=== PATIENT | female | born 1965 | race Caucasian/White ===

== ENCOUNTER → 2020-03-02 07:45 | Outpatient (CLI) | payer BC, SELFPAY ==
--- NOTE | ~2020-03-02 | US_ITS ---
US abdomen complete EXAMINATION: US Abdomen Complete INDICATION: Thrombocytopenia. Low platelets. PROCEDURE: Realtime High Resolution abdomen ultrasound. COMPARISON: Ultrasound dated 09/04/2018 FINDINGS: Gallbladder within normal limits. No gallstones, pericholecystic fluid, gallbladder wall t hickening or biliary dilatation. Common bile duct measures 3 mm. Liver echotexture is increased, consistent with fatty infiltration.. Pancreas within normal limits. Pancreatic tail is obscured by bowel gas. Spleen is unremarkeable. Renal echotexture is within norm al limits bilaterally without hydronephrosis, contour deforming mass or renal stone. Right kidney jane sures 10.7 cm. Left kidney measures 12 cm. Visualized aspects of the aorta and IVC are within normal limits. Portal vein is patent. No sonograph ic Johnson's sign indicated by the technologist. IMPRESSION: 1: Fatty infiltration of the liver. Reviewed, dictated and finalized at location A. INSPECTOR
== END ==
DX: D69.6 Thrombocytopenia, unspecified (principal); K76.0 Fatty (change of) liver, not elsewhere classified
CPT/HCPCS: 76700

== ENCOUNTER → 2021-11-21 14:18 | Outpatient (CLI) | payer BC, SELFPAY ==
--- NOTE | ~2021-11-21 | MMUS_ITS ---
EXAMINATION: MM diagnostic nay BI w sonia, US breast RT limited HISTORY: Patient complains of right breast lump, swelling of right breast TECHNIQUE: ML, MLO and CC 3-D tomosynthesis images of both breasts were performed and synthetic 2-D i mages were generated. CAD analysis was submitted and interpreted. High resolution targeted right [address] st ultrasound was performed. COMPARISON: 03/04/2019, 03/04/2018 bilateral screening mammogram examinations BREAST PARENCHYMAL COMPOSITION: The breasts are almost entirely fatty. FINDINGS: MAMMOGRAPHIC FINDINGS: No suspicious mass or architectural distortion, malignant calcification, skin thickening or retractio n or significant new or developing density is detected. ULTRASOUND: No suspicious mass or shadowing is detected at the area of clinical complaint, scanning at 5:00 12 cm from nipple and 7:00. IMPRESSION: 1. No mammographic evidence of malignancy 2. Routine mammographic screening is recommended BI-RADS Category 1: Negative Reviewed, dictated and finalized at location A. IMPRESSION: 1. No mammographic evidence of malignancy 2. Routine mammographic screening is recommended BI-RADS Category 1: Negative
== END ==
PROVIDERS: PCP Nurse Practitioner; Visit Provider Nurse Practitioner
DX: N63.13 Unspecified lump in the right breast, lower outer quadrant (principal)
CPT/HCPCS: 76642; 77062; 77066; G0279

== ENCOUNTER 2022-09-27 10:05 | Emergency (ER) | payer BC, SELFPAY ==
[2022-09-27 10:26] VITALS: BP 153/89; PULSE 109; RESP 18; TEMP 37; O2SAT 98
[2022-09-27] MEDS: TETANUS,DIPHTHERIA,AC PERTUSSIS ADULT (0.5 ML) BOOSTRIX IM (11:43)
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
== END 2022-09-27 13:21 | disposition home or self-care (01) ==
PROVIDERS: Emergency Provider Physician Assistant; PCP Nurse Practitioner
DX: S81.851A Open bite, right lower leg, initial encounter (principal); Z23 Encounter for immunization; W50.3XXA Accidental bite by another person, initial encounter
CPT/HCPCS: 90471; 90715; 99283

== ENCOUNTER 2024-06-24 13:43 | Outpatient (CLI) | payer BC, SELFPAY ==
--- NOTE | ~2024-06-24 | MM_ITS ---
EXAMINATION: MM screening [facility] BI w sonia HISTORY: Screening TECHNIQUE: Craniocaudal and mediolateral oblique 3-D tomosynthesis images were obtained and synthetic 2-D images were generated. CAD analysis was submitted and interpreted. COMPARISON: Comparison to multiple prior studies sequentially, with oldest reviewed study dated 09/06. BREAST PARENCHYMAL COMPOSITION: Not dense: There are scattered areas of fibroglandular density. FINDINGS: There is no evidence of suspicious mass, calcification, or architectural distortion to sugg est malignancy in either breast. There has been no suspicious interval change. IMPRESSION: 1. No mammographic evidence of malignancy. 2. Recommend routine screening mammography in one year. BI-RADS Category 1: Negative Reviewed, dictated and finalized at location A.
== END 2024-06-24 13:44 | disposition home or self-care (01) ==
LOC: MICIMG 13:44
PROVIDERS: PCP Nurse Practitioner; Visit Provider Nurse Practitioner
DX: Z12.31 Encounter for screening mammogram for malignant neoplasm of breast (principal)
CPT/HCPCS: 77063; 77067

== ENCOUNTER 2025-03-07 09:22 | Inpatient (IN) | payer BC, SELFPAY ==
[2025-03-07] VITALS (38 sets, daily range): BP systolic 74–164; BP diastolic 36–84; PULSE 86–166; RESP 14–27; TEMP 36.6–39.4; O2SAT 92–100; BMI 23.1
--- NOTE | ~2025-03-07 | CT_ITS ---
CT abdomen pelvis w con Clinical History: ruq pain . Comparison: None Technique: Axial images lung bases to symphysis pubis IV contrast information not listed in PACS Coronal, sagittal reformats CT images acquired with automatic exposure control for dose reduction DLP: 439 mGy-cm Findings: Lung bases: Clear. Visualized heart and pericardium: Unremarkable. Liver: Unremarkable. Gallbladder: Unremarkable. Spleen: Unremarkable. Pancreas: Unremarkable. Adrenal glands: Unremarkable. Kidneys: Right kidney- hydronephrosis. Perinephric stranding. No renal stones. A few cysts. Left kidney- No hydronephrosis. No renal stones. A few cysts. Distal esophagus/stomach: Unremarkable. Small bowel loops: Normal caliber and wall thickness. Colon: Normal caliber and wall thickness. Normal RLQ appendix. Nodes: No enlarged nodes. Peritoneum: No ascites. No free air. Pelvis severely obscured from hip prostheses streak artifact. Urinary bladder: 5 mm stone right UVJ. Uterus and adnexa: Poorly seen from streak artifact. Cystic focus left adnexa. Bones: No acute bony abnormality. Soft tissues: Unremarkable. Aorta: No aneurysm or dissection. IVC: Unremarkable. Main portal vein/SMV/splenic vein: Patent. IMPRESSION: 1. Hydronephrosis right kidney. Almost certainly due to 5 mm stone along right UVJ, although pelvis severely obscured from streak artifact. Reviewed, dictated and finalized at location R. E DRUM MOLDER
--- NOTE | ~2025-03-07 | XR_ITS ---
EXAMINATION: C-arm assistance for retrograde pyelogram and stent placement right ureter: DATE: 03/07/2025 INDICATION: Right hydronephrosis. TECHNIQUE: C-arm assistance was provided for the procedure. Fluoroscopic exposure time 26 seconds.. COMPARISON: CT scan dated 03/07/2025 FINDINGS: Contrast opacified upper urinary tract on the right side shows moderate hydronephrosis. Assistance was provided for stent placement. IMPRESSION: 1. As mentioned above Reviewed, dictated and finalized at location T. UNT[employer] PAYABLE ASSOCIATE IMPRESSION: 1. As mentioned above
--- OUTSIDE RECORDS SUMMARY | 2025-03-07 09:24 | XMS_ITS | Clinical Summary ---
Author Organization [facility] Address [facility] [place] [address] Care Team Providers Care Pizza Delivery Name Role Phone Constance Srivastava NP Primary Care Provider +1 [phone] Allergies Active Allergy Reactions Criticality Noted Date Comments Sulfa Antibiotics Swelling 11/14/2021 Medications propafenone (RYTHMOL) 150 MG tablet Take 1 tablet (150 mg total) by mouth 2 (two) times daily. 08/17/2021 Active Calcium Carbonate-Vitami n D (CALCIUM-VITAMIN D3 OR) Take by mouth daily. Active Bacillus Coagulans-Inulin (PROBIOTIC) 1-250 BILLION-MG Cap 09/05/2023 Active Cyanocobalamin (B-12) 1000 MCG Cap 09/05/2023 Active Magnesium Citrate 100 MG Tab 09/05/2023 Active SEMAGLUTIDE, 1 MG/DOSE, SC 09/05/2023 Active Active Problems Problem Noted Date Diagnosed Date BMI 25.0-25.9,adult 06/16/2024 Assessment & Plan (06/16/2024 10:07 AM CDT): Continue following a healthy lifestyle. Obstructive sleep apnea syndrome 08/29/2015 Paroxysmal ventricular tachycardia 08/29/2015 Resolved Problems Problem Noted Date Diagnosed Date Resolved Date Localized swelling of right lower leg 11/14/2021 06/16/2024 Class 3 severe obesity with body mass index (BMI) of 40.0 to 44.9 in adult, unspecified obesity type, unspecified whether serious comorbidity present 11/14/2021 06/16/2024 Palpitations 08/29/2015 06/16/2024 Immunizations Immunization Administration Dates Next Due FLUCELVAX (ccIIV3, TRIVALENT, 0.5mL) 03/20/2024 Hepatitis B(Engerix B Adult) 08/06/2014,05/14/19 15,04/09/2014 Influenza Adult (Generic) 01/14/2023,07/2021,01/26/2021,2017 MODERNA COVID-19 (12+), MRNA , LNP-S, PF, 50 MCG/0.5 ML (SPIKEVAX) 01/14/2023 MODERNA COVID-19 (FISCAL OFFICER ROSEMARY LYNETTE), MRNA, LNP-S, PF, 50 MCG/ 0.25 ML DOSE 07/17/2021 Tdap (Generic) 09/27/2022 Family History Medical History Relation Comments Cancer Father Bladder and bloo d cancer Diabetes Father Stroke Father Arthritis Mother Relation Status Comments Father Mother Social History Tobacco Use Types Packs/Day Years Used Date Smoking Tobacco: Never Smokeless Tobacco: Never Tobacco Cessation:Counseling Given: No Alcohol Use Standard Drinks/Week Comments Yes 0 (1 standard drink = 0.6 oz pur e alcohol) Social, rarely PHQ-2 Answer Date Recorded Patient Health Questionnaire-2 Score 0 06/16/2024 Comments No Sex and Gender Information Value Date Recorded Sex Assigned at Not on file Legal Sex Female 9:00 AM CDT Gender Identity Not on file Sexual Orientation Not on file Last Filed Vital Signs Vital Sign Reading Time Taken Comments Blood Pressure 104/64 06/16/2024 9:21 AM CDT Pulse 71 06/16/2024 9:21 AM CDT Temperature 36.9 C (98.4 F) 06/16/2024 9:21 AM CDT Respiratory Rate 16 06/16/2024 9:21 AM CDT Oxygen Saturation 98% 06/16/2024 9:21 AM CDT Inhaled Oxygen Concentration - - Weight 72.6 kg (160 lb) 06/16/2024 9:21 AM CDT Height 170.2 cm (5' 7) 06/16/2024 9:21 AM CDT Body Mass Index 25.06 06/16/2024 9:21 AM CDT Plan of Treatment Health Maintenance Due Date Last Done Comments Colorectal Cancer Screening Colonoscopy (10 Years) 1965 Pneumococcal Vaccine: 50+ Years (1 of 1 - PCV) 06/23/2013 Zoster Vaccines (1 of 2) 06/23/2013 COVID-19 Vaccine (7 - season) 2024 01/14/2023, 12/20/2021, 07/17/2021, Additional history exists Influenza Adult (#1) 2024 03/20/2024, 01/14/2023, 12/20/2021, Additional history exists Annual Physical 06/16/2025 06/16/2024, 11/14/2021 Mammogram Screening 2026 2024, DTaP, Tdap and Td Vaccines (2 - Td or Tdap) 09/27/2032 09/27/2022 RSV Immunization or 60+ Years (1 - 1-dose 75+ series) 06/23/2038 Hepatitis C Completed 11/17/2021 PHQ-2 (Physician [place]) Completed 06/16/2024 Hepatitis A Vaccines Aged Out No long er eligible based on patient's age to complete this topic Meningococcal B Vaccine Aged Out No l onger eligible based on patient's age to complete this topic Meningococcal Vaccine Aged Out No kaila epifanio eligible based on patient's age to complete this topic RSV Immunizations Under 20 Months Aged Out No longer eligible based on patient's age to complete this topic Procedures Procedure Name Priority Date/Time Associated Diagnosis Comments MAMMOGRAM GENERIC (SCAN ORDER) 2024 HEPATITIS C ANTIBODY W/RFX TO HCV RNA Routine 11/17/2021 12:00 PM CDT Need for hepatitis C screening test from Last 3 Months or Most Recently Relevant to Health Maintenance Results * MAMMOGRAM GENERIC (SCAN ORDER) (2024) Anatomical Region Laterality Modality Other 2024 [facility] Scanned SCANNING Final Resu lt * HEPATITIS C ANTIBODY W/RFX TO HCV RNA ([facility] ONLY) (11/17/2021 12:00 PM CDT) HEPATITIS C AB NON-REACTI VE NON-REACT JARRED [facility] SIGNAL TO CUTOFF 0.[address] <[address] [facility] Comment: HCV antibody was non-reactive. There is no laboratory evidence of HCV infection. In most cases, no further action is required. However, if recent HCV exposure is suspected, a test for HCV RNA (test code 55987) is suggested. For additional information please refer to http://education.[employer]/faq/KHN78d3 (This link is being provided for informational/ educational purposes only.) 11/17/2021 12:0 0 PM CDT 11/17/2021 12:01 PM CDT Narrative [facility] - 11/18/2021 12:20 PM CDT FASTING:YES FASTING: YES Constance Srivastava NP LABORATORY Final Res ult [facility] [address] [place] [address] from Last 3 Months or Most Recently Relevant to Health Maintenance Insurance [facility] Care Teams Pizza Delivery Relationship Specialty Start Date End Date Constance Srivastava NP [address] [facility] [address] [address] PCP - General NURSE PRACTITIONER 11/09/21
--- OUTSIDE RECORDS SUMMARY | 2025-03-07 09:25 | XMS_ITS | Clinical Summary ---
Author Organization [facility] Address [address] [place] [address] Phone Care Team Providers Care Claim Clerk Name Role Phone Cordell Madrid MD Primary Care Provider [phone] Allergies Active Allergy Reactions Criticality Noted Date Comments Sulfa (Sulfonamide Antibiotics) Unknown Medications spironolactone (ALDACTONE) 50 mg tablet Take 50 mg by mouth daily. Active propafenone (RYTHMOL SR) 225 mg Sustained Release 12 hour capsule Take 1 Cap (225 mg) by mouth every 12 hours. 60 Cap 10 08/04/2014 Active Active Problems Problem Noted Date Diagnosed Date Palpitations RVOT ventricular tachycardia TEN (obstructive sleep apnea) Social History Tobacco Use Types Packs/Day Years Used Date Smoking Tobacco: Never Assessed Comments Unknown Sex and Gender Information Value Date Recorded Sex Assigned at Not on file Legal Sex Female 3:47 PM CDT Gender Identity Not on file Sexual Orientation Not on file Last Filed Vital Signs Vital Sign Reading Time Taken Comments Blood Pressure 130/77 08/04/2014 2:12 PM CDT Pulse 77 08/04/2014 2:12 PM CDT Temperature - - Respiratory Rate - - Oxygen Saturation - - Inhaled Oxygen Concentration - - Weight 95.7 kg (211 lb) 08/04/2014 2:12 PM CDT Height 172.7 cm (5' 8) 08/04/2014 2:12 PM CDT Body Mass Index 32.08 08/04/2014 2:12 PM CDT Plan of Treatment Health Maintenance Due Date Last Done Comments DTAP/TDAP/TD VACCINES (1 - Tdap) 06/23/1982 HPV/Cotest (21-29) 06/23/1984 CERVICAL CANCER SCREENING 06/23/1993 HPV/Cotest (30-65) 06/23/1993 PAP SMEAR 06/23/1993 BREAST CANCER SCREENING 2003 COLORECTAL SCREENING 06/23/2008 Colorectal Cancer Screening 06/23/2008 FIT-DNA Q 3 years 06/23/2008 FIT/FOBT Q 1 year 06/23/2008 Flex Sig/CT Colonography Q 5 years 06/23/2008 ZOSTER VACCINE (1 of 2) 06/23/2013 INFLUENZA VACCINE (#1) 2024 RSV VACCINE (60+ or ) (1 - 1-dose 75+ series) 06/23/2038 Insurance [employer] BLUE ACCESS/TRUE BLUE PPO [employer] OPEN ACCESS HMO Care Teams Claim Clerk Relationship Specialty Start Date End Date Cordell Madrid MD PCP - General Family Practice 07/12/14
--- OUTSIDE RECORDS SUMMARY | 2025-03-07 11:39 | XMS_ITS | Clinical Summary ---
Author Organization [facility] Address [address] [place] [address] Phone Care Team Providers Care Evaluator Transfer Students Name Role Phone Cordell Madrid MD Primary Care Provider [phone]- [phone] Allergies Active Allergy Reactions Criticality Noted Date [...] PPO [employer] OPEN ACCESS HMO Care Teams Evaluator Transfer Students Relationship Specialty Start Date End Date Cordell Madrid MD PCP - General Family Practice 07/12/14
--- OUTSIDE RECORDS SUMMARY | 2025-03-07 11:39 | XMS_ITS | Clinical Summary ---
Author Organization [facility] Address [address] [place] [address] Care Team Providers Care Cutter Operator Helper Name Role Phone Cordell Madrid MD Primary Care Provider + Gilberto Rizzo MD Unavailable [phone] Source Comments [facility],non-owned Affiliates and Associated Physician Practices is amultiple site organization consisting of ambulatory clinics and hospital sitesin [place], [place], [place] and [place]. This disclosure is being madepursuant to the Care Everywhere program and may not contain all information available regarding this patient. Last updated 17.[facility] Allergies Active Allergy Reactions Criticality Noted Date Comments Sulfa Drugs Unknown,Swelling Low 08/29/2015 Joint pain Medications * Be aware that medications may not be up to date on this document. Alwaysverify current medications with the patient. aspirin (ASPIRIN) 81 MG tablet Take 81 mg by mouth once daily Active Calcium Carbonate-Vitam in D (CALCIUM + D PO) Take by mouth once daily Active vitamin D, ergocalciferol, (DRISDOL) 82780 UNITS capsule Take 50,000 Units by mouth as directed Three times monthly Active Cyanocobalamin (VITAMIN B-12 PO) Take by mouth once daily Active propafenone (RYTHMOL) 150 MG tablet TAKE 1 TABLET TWICE A DAY 180 tablet 3 04/09/2019 Active Active Problems Problem Noted Date Diagnosed Date Obstructive sleep apnea 08/29/2015 Palpitations 08/29/2015 Paroxysmal ventricular tachycardia 08/29/2015 Social History Tobacco Use Types Packs/Day Years Used Date Smoking Tobacco: Never Smokeless Tobacco: Never Comments Unknown Sex and Gender Information Value Date Recorded Sex Assigned at Not on file Legal Sex Female 6:32 AM STITCHER UTILITY Gender Identity Not on file Sexual Orientation Not on file Last Filed Vital Signs Vital Sign Reading Time Taken Comments Blood Pressure 145/96 02/03/2019 10:44 AM STITCHER UTILITY Pulse 59 02/17/2020 1:25 PM STITCHER UTILITY Temperature - - Respiratory Rate - - Oxygen Saturation 97% 01/20/2018 2:38 PM STITCHER UTILITY Inhaled Oxygen Concentration - - Weight 122.1 kg (269 lb 3.2 oz) 02/17/2020 1:25 PM STITCHER UTILITY Height 168.9 cm (5' 6.5) 02/17/2020 1:25 PM STITCHER UTILITY Body Mass Index 42.8 02/17/2020 1:25 PM STITCHER UTILITY Plan of Treatment Health Maintenance Due Date Last Done Comments COLOGUARD (AGES 45-75) - COL ON CA SCREENING 1965 COLON MONITORING 1963 COLONOSCOPY - COLON CA SCREENING 1963 CT COLONOGRAPHY - COLON CA SCREENING 1963 Colorectal Cancer Screening 1965 FIT - COLON CA SCREENING 1963 FLEX SIG - COLON CA SCREENING 1963 LIPID TESTING 1965 MAMMOGRAM 1963 HIV SCREENING 06/23/1978 HEPATITIS C SCREENING 06/19/1981 DTAP/TDAP/TD VACCINES (1 - Tdap) 06/23/1982 PNEUMOCOCCAL VACCINE 50+ (1 of 1 - PCV) 06/23/2013 ZOSTER VACCINE (1 of 2) 06/23/2013 SCREENING FOR DIABETES 02/17/2023 02/18/2020 DEPRESSION SCREENING 03/18/2024 COVID-19 VACCINE (1 - 2024-2 6 season) 2024 INFLUENZA VACCINE (#1) 2024 12/27/2017 Respiratory Syncytial Virus (RSV) Vaccine Pt: or over 60 yrs (1 - 1-dose 75+ series) 06/23/2038 HEPATITIS B VACCINE Aged Out No longe r eligible based on patient's age to complete this topic HIB VACCINE Aged Out No longer eligi ble based on patient's age to complete this topic HPV VACCINE Aged Out No longer eligi ble based on patient's age to complete this topic MENINGOCOCCAL (Group B) VACC INE SHARED DECISION-MAKING Aged Out No longer eligibl e based on patient's age to complete this topic MENINGOCOCCAL GROUPS A/C/Y/W VACCINE Aged Out No longer eligible b ased on patient's age to complete this topic Procedures Procedure Name Priority Date/Time Associated Diagnosis Comments BASIC METABOLIC PANEL (CALCIUM TOTAL) Routine 02/18/2020 11:23 AM STITCHER UTILITY PVC's (premature ventricular contractions) from Last 3 Months or Most Recently Relevant to Health Maintenance Results * BASIC METABOLIC PANEL (BMP) (02/18/2020 11:23 AM STITCHER UTILITY) Glucose 89 65 - 99 mg/dL [facility] Comment: Fasting reference interval BUN 12 7 - 25 mg/dL [facility] Creatinine 0.80 0.50 - 1.05 mg/dL [facility] Comment: For patients >49 years of age, the reference limit for Creatinine is approximately 13% higher for people identified as -Malaysian. eGFR by MDRD 82 > OR = 60 mL/min/1 .73m2 [facility] eGFR by MDRD 96 > OR = 60 mL/min/1 .73m2 [facility] BUN/Creatinine Ratio NOT APPLICABLE 6 - 22 (calc) [facility] Sodium 143 135 - 146 mmol/L [facility] Potassium 3.9 3.5 - 5.3 mmol/L [facility] Chloride 106 98 - 110 mmol/L [facility] CO2 28 20 - 32 mmol/L [facility] Calcium 9.1 8.6 - 10.4 mg/dL [facility] Comment: Test Performed at: [email or web address] [address] [place] [address] ALIS CUELLAR DO,MPH Blood BLOOD SPECIMEN / Unknown 02/18/2020 11:23 AM STITCHER UTILITY 02/18/2020 11:26 AM STITCHER UTILITY us Sabas Mckee MD LAB - CHEMISTRY ORDERAB LES Final Result [facility] [id number] [place] [address] from Last 3 Months or Most Recently Relevant to Health Maintenance Insurance [employer] Care Teams Cutter Operator Helper Relationship Specialty Start Date End Date Cordell Madrid MD [address] [place] [id number] PCP - General Family Medicine 08/18/14 Gilberto Rizzo MD [address] [place] [address] [place] [id number] Cardiovascular Disease 08/18/14
--- OUTSIDE RECORDS SUMMARY | 2025-03-07 11:39 | XMS_ITS | Clinical Summary ---
Author Organization [facility] Address [facility] [place] [address] Care Team Providers Care Sort Line Name Role Phone Constance Srivastava NP Primary Care Provider [phone] -[phone] Allergies Active Allergy Reactions Criticality Noted Date [...] 50 MCG/0.5 ML (SPIKEVAX) 01/14/2023 MODERNA COVID-19 (BEHAVIORIST ROSEMARY LYNETTE), MRNA, LNP-S, PF, 50 MCG/ [...] 06/23/2038 Hepatitis C Completed 11/17/2021 PHQ-2 (Physician [place]) Completed 06/16/2024 Hepatitis A Vaccines Aged Out [...] a test for HCV RNA (test code 28890) is suggested. For additional information please refer to http://education.[employer]/faq/IWC41f8 (This link is being provided for informational/ educational purposes only.) 11/17/2021 12:0 0 PM CDT 11/17/2021 12:01 PM CDT Narrative [facility] - 11/18/2021 12:20 PM CDT FASTING:YES FASTING: YES Constance Srivastava NP LABORATORY Final Res ult [facility] [address] [place] [address] from Last 3 Months or Most Recently Relevant to Health Maintenance Insurance [facility] Care Teams Sort Line Relationship Specialty Start Date End Date Constance Srivastava NP [address] [facility] [address] [address] PCP - General NURSE PRACTITIONER 11/09/21
[2025-03-07 11:44] LABS: Hematocrit 36.9 % (37.0-47.0); Hemoglobin 12.7 g/dL (12.0-15.0); Immature Granulocyte Percent A 0.2 % (0-0.5); Lymphocytes Absolute Auto 0.13 K/mm3 (0.9-3.2); Mean Corpuscular HGB Conc 34.4 g/dl (32-36); Mean Corpuscular Hemoglobin 31.4 pg (26-34); Mean Corpuscular Volume 91.3 fl (80-100); Nucleated Red Blood Cells Absolute Auto 0.000 K/mm3 (0.0-0.012); Nucleated Red Blood Cells Perc 0.0 % (0.0-0.2); Platelet Count Result 106 k/mm3 (150-375); Red Blood Count 4.04 M/mm3 (4.2-5.4); White Blood Count 8.3 K/mm3 (4.5-10.0)
[2025-03-07] MEDS: SODIUM CHLORIDE 0.9% IV 1,000 ML 999 ML IV CONT (12:00)
[2025-03-07 12:20] LABS: Alanine Aminotransferase 20 U/L (6-35); Albumin Level 3.8 g/dL (3.5-5.1); Alkaline Phosphatase 57 U/L (38-126); Anion Gap 5 mmol/L (4-12); Aspartate Amino Transferase 35 U/L (14-36); Bilirubin,Total 1.2 mg/dL (0.2-1.3); Blood Urea Nitrogen 25 mg/dL (7-17); Calcium 9.0 mg/dL (8.4-10.2); Carbon Dioxide 26 mmol/L (22-30); Chloride 104 mmol/L (98-107); Estimated CRCL calculation 55 ml/min; Estimated Glomerular Filt Rate 60; Glucose 94 mg/dL (65-110); Potassium 3.3 mmol/L (3.4-5.0); Sodium 135 mmol/L (137-145); Total Protein 6.3 g/dL (6.3-8.2)
[2025-03-07] MEDS: ONDANSETRON INJ 4 MG/2 ML VIAL IV PUSH (12:30)
[2025-03-07] MEDS: MORPHINE SULFATE (*CRX) 4 MG/ML INJ IV PUSH ×2 (12:30→13:28)
[2025-03-07 12:45] LABS: Add Urine Microscopic? YES; Appearance Urine Clear (Clear); Glucose Urine UA Negative (Negative); Leukocyte Esterase Ur 1+ LEU/UL (Negative); Nitrate Urine Positive (Negative); Non Pathogenic Casts 0-2; Specific Grav Ur 1.012 (1.001-1.035)
[2025-03-07] MEDS: cefTRIAXone 2 GM in SODIUM CHLORIDE 0.9% IV 100 ML 200 ML IVPB (13:46)
[2025-03-07] MEDS: HYDROmorphone HCL INJ (*CRX) 1 MG/ML SYR 0.5 MG IV PUSH (13:47)
--- NOTE | 2025-03-07 13:49 | ED.BACK ---
HPI - Back Pain/Injury General Chief Complaint: Back Pain/Injury Stated Complaint: right flank pain Time Seen by Provider: 03/07/25 11:31 Source: patient Mode of arrival: ambulatory Limitations: no limitations History of Present Illness HPI Narrative: 59-year-old with a history remote history of kidney stones presents the ER with a complaint of sudden onset of severe right-sided abdominal pain with started early this morning associated with nausea. She denies any fever or chills, has no urinary symptoms. Onset (ago): hour(s) (4) Timing: constant Severity: severe Quality: sharp Location: right flank Radiation: abdomen (Right upper quadrant) Exacerbating factors: none Relieving factors: none Associated symptoms: abdominal pain Related Data Home Medications ?Medication ?Instructions ?Recorded ?Confirmed ?Last Taken ?Type propafenone 150 mg tablet mg 03/07/25 03/06/25 History Allergies Allergy/AdvReac Type Severity Reaction Status Date / Time Sulfa (Sulfonamide Allergy Mild Joint Pain Verified 03/07/25 13:49 Antibiotics) Review of Systems Review of Systems: All systems reviewed & are unremarkable except as noted in HPI and below Constitutional: Constitutional: Reports no additional constitutional complaints Eyes: Eyes: Reports no additional eye complaints ENT: Reports system reviewed and no additional complaints, except as documented Cardiovascular: Cardiovascular: Reports no additional cardiovascular complaints Respiratory: Respiratory: Reports no additional respiratory complaints Gastrointestinal: Gastrointestinal: Reports as per HPI Genitourinary: Genitourinary: Reports as per HPI Musculoskeletal: Musculoskeletal: Reports no additional musculoskeletal complaints Neurologic: Reports system reviewed and no additional complaints, except as documented Psychiatric: Psychiatric: Reports no additional psychiatric complaints [facility] Past Medical History Medical History No active medical problems Social History Social History Smoking status: Never smoker Exam Narrative: GENERAL: Well-appearing, well-nourished, and in moderate distress secondary to pain HEAD: Normocephalic, atraumatic. EYES: PERRLA and EOMI. ENT: Nares clear, no rhinorrhea or epistaxis. Mucous membranes moist. NECK: Supple. CHEST: Clear to auscultation. No respiratory distress. HEART: Regular rate and rhythm. No murmur heard. Normal peripheral pulses. ABDOMEN: Soft, mild right upper quadrant tenderness, nondistended, normal active bowel sounds. EXTREMITIES: Normal range of motion. No edema. SKIN: Warm, dry, no rash. NEURO: No focal deficits. Alert and oriented x3. PSYCH: Normal mood and affect. Course Course Emergency Course: Patient continues to be in moderate amount of pain despite IV morphine. Informed her about the lab work and CT findings. Discussed with Dr. Galloway will consult the patient notified hospitalist. Vital Signs Vital signs: Vital Signs Temperature 36.8 C 03/07/25 09:54 Pulse Rate 130 H 03/07/25 09:54 Respiratory Rate 18 03/07/25 09:54 Blood Pressure 105/65 03/07/25 09:54 Pulse Oximetry 98 03/07/25 09:54 Temperature 37.3 C 03/07/25 11:33 Pulse Rate 86 03/07/25 11:33 Respiratory Rate 14 03/07/25 11:33 Blood Pressure 138/84 03/07/25 11:33 Pulse Oximetry 99 03/07/25 11:33 [facility] Differential Diagnosis Differential Diagnosis: Pyelonephritis, ureterolithiasis, and cholecystitis Lab Data [facility] Lab Attestation statement: I personally reviewed the patient's lab results. 03/07/25 11:38 03/07/25 11:38 Labs: Lab Results 03/07/25 03/07/25 Range/Units 11:38 12:35 WBC 8.3 (4.5-10.0) K/mm3 RBC 4.04 L (4.2-5.4) M/mm3 Hgb 12.7 (12.0-15.0) g/dL Hct 36.9 L (37.0-47.0) % MCV 91.3 (80-100) fl MCH 31.4 (26-34) pg MCHC 34.4 (32-36) g/dl RDW 12.5 (11.5-14.5) % Plt Count 106 L (150-375) k/mm3 MPV 8.8 (7.4-10.4) fl Immature Gran % (Auto) 0.2 (0-0.5) % Neut % (Auto) 97.5 H (45.5-73.1) % Lymph % (Auto) 1.6 L (18.3-44.2) % [place] % (Auto) 0.4 L (2.6-8.5) % Eos % (Auto) 0.1 (0-4.4) % Baso % (Auto) 0.2 (0.2-1.2) % Lymph # (Auto) 0.13 L (0.9-3.2) K/mm3 [place] # (Auto) 0.0 L (0.1-0.6) K/mm3 Eos # (Auto) 0.0 (0-0.3) K/mm3 Baso # (Auto) 0.0 (0.0-0.1) K/mm3 Abs Immat Gran (auto) 0.02 (0.00-0.031) K/mm3 Absolute Neuts (auto) 8.1 H (1.3-6.7) K/mm3 Absolute Nucleated RBC 0.000 (0.0-0.012) K/mm3 Nucleated RBC % 0.0 (0.0-0.2) % Sodium 135 L (137-145) mmol/L Potassium 3.3 L (3.4-5.0) mmol/L Chloride 104 (98-107) mmol/L Carbon Dioxide 26 (22-30) mmol/L Anion Gap 5 (4-12) mmol/L BUN 25 H (7-17) mg/dL Creatinine 0.95 (0.7-1.0) mg/dL Estim Creat Clear Calc 55 ml/min Estimated GFR 60 (59 - ) Glucose 94 (65-110) mg/dL Calcium 9.0 (8.4-10.2) mg/dL Total Bilirubin 1.2 (0.2-1.3) mg/dL AST 35 (14-36) U/L ALT 20 (6-35) U/L Alkaline Phosphatase 57 (38-126) U/L Total Protein 6.3 (6.3-8.2) g/dL Albumin 3.8 (3.5-5.1) g/dL Urine Color Yellow (Yellow) Urine Appearance Clear (Clear) Urine pH 8.0 (5.0-9.0) Ur Specific [place] 1.012 (1.001-1.035) Urine Protein Negative (Negative) mg/dL Urine Glucose (UA) Negative (Negative) mg/dL Urine Ketones Trace H (Negative) mg/dL Ur Blood (Man) 2+ H (Negative) Urine Nitrate Positive H (Negative) Urine Bilirubin Negative (Negative) Urine Urobilinogen 0.2 (<2.0) mg/dL Leukocyte Esterase Rfl 1+ H (Negative) JES/UL Urine RBC 21-50 H (0-2) /hpf Urine WBC 11-20 H (0-3) /hpf Ur Squamous Epith Cells None seen (Few) /hpf Urine Bacteria 4+ H /hpf Urine Casts 0-2 Imaging Data Radiologist's impression: ITS Impressions Abdomen/Pelvis CT 03/07/25 13:16 IMPRESSION: 1. Hydronephrosis right kidney. Almost certainly due to 5 mm stone along right UVJ, although pelvis severely obscured from streak artifact. Discharge Plan Discharge Clinical Impression: Ureterolithiasis Urinary tract infection Qualifiers: Urinary tract infection type: site unspecified Hematuria presence: without hematuria Qualified Code(s): N39.0 - Urinary tract infection, site not specified Patient Disposition: Still a Patient Condition: Stable Patient Language: Czech Prescriptions: No Action propafenone 150 mg tablet Follow-up/Referrals: Atif,ALEJANDRINA Freitas [Primary Care Provider, Unknown] Time of Disposition: 13:56
[2025-03-07] MEDS: ACETAMINOPHEN 325 MG TABLET 650 MG PO (14:24)
[2025-03-07] MEDS: SODIUM CHLORIDE 0.9% IV 1,000 ML 150 ML IV CONT (14:24)
[2025-03-07] MEDS: LACTATED RINGERS 1,000 ML 999 ML IV CONT ×2 (14:28→20:32)
--- NOTE | 2025-03-07 14:35 | PC.NURSE ---
pt noted to be febrile 103 via oral temp- one time order from Dr Gonzalez for Tylenol 650 pt nauseated and dry heaving, one time order for Zofran 4mg ivp from Dr Gonzalez. EDP made aware o changes in pt
[2025-03-07] MEDS: ONDANSETRON INJ 4 MG/2 ML VIAL (14:38)
--- NOTE | 2025-03-07 14:40 | PM.IMHP2 ---
H&P: HPI History of Present Illness Date/Time: 03/07/25 14:40 Chief Complaint: Flank Pain Narrative: 59 y/o F with PMH of paroxysmal ventricular tachycardia and kidney stones presents here with right flank pain. The patient presents here from home on 03/07 for further evaluation of right flank pain that began around 4:30 a.m. this morning. She describes the flank pain as severe, crampy, radiation into her right upper quadrant, constant, and no modifying factors prior to arrival. Did improve with IV narcotics during her evaluation in the ER. She reports associated nausea, vomiting, lightheadedness, dizziness, and general malaise. She denies dysuria, hematuria, fever, chills, chest pain, or shortness of breath. Denies any urinary symptoms including dysuria, urinary frequency, or urinary hesitancy. She does report a past medical history significant for kidney stones. Last occurrence around 10 years ago and did not require a stent at that time. Initial VS at presentation: 98.3? F, HR 1:30 a.m. are 18, 105/65, and 98% on RA. ED workup showed: No leukocytosis, no anemia, sodium 135, potassium 3.3, creatinine 0.95 and GFR 60, lactic pending, UA consistent with UTI with no epithelial cells. CT of the abdomen/pelvis showed hydronephrosis of right kidney, almost certainly due to 5 mm stone along right UVJ although pelvis severely obstructed from streak artifact. Review of Systems Review of Systems: All systems reviewed & are unremarkable except as noted in HPI and below PMFSH Past Medical History Medical History Obstructive sleep apnea Paroxysmal ventricular tachycardia pt maintained on rhythmol 150mg daily, managed at [facility], follows annually Kidney stones Social History Social History Smoking status: Never smoker Meds Home Medications and Allergies Home Medications ?Medication ?Instructions ?Recorded ?Confirmed ?Type propafenone 150 mg tablet mg 03/07/25 History Allergies Allergy/AdvReac Type Severity Reaction Status Date / Time Sulfa (Sulfonamide Allergy Mild Joint Pain Verified 03/07/25 13:49 Antibiotics) Vital Signs Vital Signs - 24 hr 03/07/25 09:54 03/07/25 11:33 03/07/25 13:57 Temperature 98.3 F 99.2 F 103 F H Pulse Rate 130 H 86 136 H Respiratory Rate 18 14 18 Blood Pressure 105/65 138/84 149/81 H Pulse Oximetry 98 99 98 Exam Const: Other: , female, ill-appearing without toxic appearance. Modestly uncomfortable with no acute distress. HENMT: Face/Nose/Sinus: Normal nares present Mouth: Yes moist mucous membranes Eyes: General: appearance normal, both eyes and all related structures Sclera: sclerae normal Pupils: Equal, round and reactive pupils present EOM: EOMs intact bilaterally Resp: Effort & Inspection: normal respiratory effort Auscultation: clear to auscultation bilaterally Cardio: Rate: tachycardic Rhythm: regular rhythm Other: S1-S2 present without murmur, rub, ectopy GI: Other: Abdomen soft and nondistended. Significant tenderness in the right upper quadrant that wraps around to her right flank, +CVA tenderness that is right-sided. Normoactive bowel sounds in all quadrants. Skin: General skin exam: normal color and no rashes or lesions noted Wounds: no wounds Neuro: Speech: normal speech Motor exam (neuro): 5/5 motor strength present throughout Sensory Exam: normal sensation Other: A&O x4 Extrem: General: normal to inspection Psych: Mental Status: mental status grossly normal Affect: normal affect Other: Good insight and judgment, pleasant Results Labs Labs: Short CBC 03/07/25 Range/Units 11:38 WBC 8.3 (4.5-10.0) K/mm3 Hgb 12.7 (12.0-15.0) g/dL Hct 36.9 L (37.0-47.0) % Plt Count 106 L (150-375) k/mm3 BMP 03/07/25 11:38 Sodium 135 L Potassium 3.3 L Chloride 104 Carbon Dioxide 26 BUN 25 H Creatinine 0.95 Glucose 94 Calcium 9.0 Liver Function 03/07/25 Range/Units 11:38 Total Bilirubin 1.2 (0.2-1.3) mg/dL AST 35 (14-36) U/L ALT 20 (6-35) U/L Alkaline Phosphatase 57 (38-126) U/L Albumin 3.8 (3.5-5.1) g/dL Urine 03/07/25 Range/Units 12:35 Urine Color Yellow (Yellow) Urine Appearance Clear (Clear) Urine pH 8.0 (5.0-9.0) Ur Specific [place] 1.012 (1.001-1.035) Urine Protein Negative (Negative) mg/dL Urine Glucose (UA) Negative (Negative) mg/dL Quality VTE Prophylaxis VTE prophylaxis: mechanical ordered Assessment and Plan Assessment and plan (1) Sepsis: Qualifiers: Sepsis type: sepsis due to unspecified organism Sepsis acute organ dysfunction status: without acute organ dysfunction Qualified Code(s): A41.9 - Sepsis, unspecified organism Code(s): A41.9 - Sepsis, unspecified organism Status: Acute Assessment and Plan: Patient met sepsis criteria due to heart rate (> 130), tachypnea, and temp (103? F). Patient however does not have any significant leukocytosis, WBC 8.3. Patient received 1 L fluid prior to evaluation of lactic acid levels, will check procalcitonin and lactic acid. Blood cultures were ordered in the ED, however ceftriaxone was administered prior to cultures. Despite despite a L bolus the patient remained significantly tachycardic in the 140s. Second bolus ordered and patient to be placed on maintenance fluids. Suspected source is pyelonephritis as there is perinephric stranding noted of the right kidney that is complicated by hydronephrosis and a 5 mm stone of the right UVJ. Vital signs reviewed from the emergency department, no hypoxia or hypotension noted. No associated MARCUS. - blood culture obtained on 03/07, follow - check procalcitonin and lactic acid >> lactic 4.2 and procalcitonin 17.6, trend lactic down - extremities warm and well perfused upon admission on 03/07 - monitor for hemodynamic stability - monitor WBC - broad-spectrum ABX for pyelonephritis HR initially in the 130s, however continued to worsen and peaked in the 160s. Patient given additional IV fluids and Toradol for fever of 103? F which is likely contributing to the tachycardia. Who adding telemetry monitoring given patient is still in the 130s despite fluids. May DC once stabilized. (2) Pyelonephritis: Code(s): N12 - Tubulo-interstitial nephritis, not specified as acute or chronic Status: Acute Assessment and Plan: Presented here with acute onset of right flank pain at 4:00 a.m. this morning with associated nausea and vomiting. Currently complicated by a right UVJ kidney stone. Perinephric stranding noted on CT. Patient febrile, tachycardic, and tachypneic meeting sepsis criteria - see above. - UA: Trace ketones, 2+ blood, positive nitrates, 1+ leuk esterase, 21-50 RBC, 11-20 WBC, no epithelial cells, 4+ bacteria - UC pending - no previous micro available for review - started on Ceftriaxone on 03/07, continued inpatient - IV fluids (3) Ureterolithiasis: Code(s): N20.1 - Calculus of ureter Status: Acute Assessment and Plan: Imaging CT abd/pelvis, 03/07: 1. Hydronephrosis right kidney. Almost certainly due to 5 mm stone along right UVJ, although pelvis severely obscured from streak artifact. >>Kidneys: Right kidney- hydronephrosis. Perinephric stranding. No renal stones. A few cysts. Left kidney- No hydronephrosis. No renal stones. A few cysts. - Urology consulted. per ED provider who spoke with on-call urologist Dr. Galloway, given the stone is in the UVJ the patient may be able to pass the stone on her own. Plan for repeat imaging tomorrow. No emergent indication for cystoscopy/stent placement. >> change in plan -vital signs continued to worsen in the emergency department and patient developed a heart rate in the 160s with a fever of 103? F. ED reached back out to the on-call urologist who now plans for a more urgent/emergent cystoscopy this afternoon. Patient updated on plan of care. To remain NPO until post procedure. - strain all urine - treat concurrent UTI - IV fluids - monitor renal function - analgesics p.r.n. and antiemetic p.r.n. (4) Paroxysmal ventricular tachycardia: Code(s): I47.20 - Ventricular tachycardia, unspecified Status: Chronic Assessment and Plan: Patient has history of paroxysmal ventricular tachycardia. Currently tachycardic with heart rate greater than the 140s, sinus tachycardia on EKG. However suspect current tachycardia more so related to sepsis/active infection. Receiving IV fluids. - continue home medication: propafenone Plan Very mild hypokalemia noted upon admission on 03/07, K 3.3. Given 40 KCL p.o. Recheck in a.m. On telemetry monitoring. Diet: NPO, heart healthy post procedure GI Prophylaxis: n/a DVT Prophylaxis: SCDs IV fluids: 2L -> 150 mL/hr x1L Lines/Tubes: pIV Code Status: Full code Prior Studies I have reviewed the following patient records and this information was taken into consideration when formulating the assessment and plan.: previous labs, previous ER visits, previous hospitalizations and previous clinic visits Time Spent with Patient Time with patient: less than 45 minutes Hospitalist MIPS Advance Care Plan I have confirmed that the patient's Advanced Care Plan is present, code status is documented, or surrogate decision maker is listed in patient medical record.: Yes Medication Reconciliation I have utilized all available resources to obtain, update and review the patients current medications (includes all prescriptions, OTC, herbals, cannabis, and nutritional supplements).: Yes
--- NOTE | 2025-03-07 14:56 | ECG_ITS ---
Test Date: 2025-03-07 15:14:34 Measurements Intervals [place] Rate: 137 P: 59 NE: 167 QRS: 79 QRSD: 85 T: 47 QT: 330 QTc: 499 Interpretive Statements SINUS TACHYCARDIA MINIMAL Q WAVES- ANTEROLAT/INF LEADS NONSPECIFIC ST & T-WAVE ABNORMALITY- ANT/INF LEADS BASELINE WANDER- I, III, AVL ABNORMAL ECG No previous ECG available for comparison Electronically Signed On 03-07-2025 17:06:00 [employer] by Srikanth Lopez D.O.
--- NOTE | 2025-03-07 15:41 | P.PNAN_ITS ---
Anes - Eval Pre Procedure Procedure: cysto, stent placement Date/Time: 03/07/25 15:41 Surgeon: Dr. Galloway Preop Diagnosis: right kidney stone, right hydronephrosis Pre Op Diagnosis: infected ureteral stone Patient Data Age: 59 Gender: F Height: 1.73 m Weight: 68 kg Last Vital Signs Temp 103 F H 03/07/25 13:57 Pulse 135 H 03/07/25 15:01 Resp 21 H 03/07/25 15:01 BP 140/58 L 03/07/25 15:00 Pulse Ox 98 03/07/25 15:01 Allergies Allergy/AdvReac Type Severity Reaction Status Date / Time Sulfa (Sulfonamide Allergy Mild Joint Pain Verified 03/07/25 13:49 Antibiotics) Home Medications ?Medication ?Instructions ?Recorded ?Confirmed ?Type propafenone 150 mg tablet mg 03/07/25 History Laboratory Tests 03/07/25 03/07/25 03/07/25 11:38 12:35 14:19 WBC 8.3 K/mm3 (4.5-10.0) RBC 4.04 L M/mm3 (4.2-5.4) Hgb 12.7 g/dL (12.0-15.0) Hct 36.9 L % (37.0-47.0) MCV 91.3 fl (80-100) MCH 31.4 pg (26-34) MCHC 34.4 g/dl (32-36) RDW 12.5 % (11.5-14.5) Plt Count 106 L k/mm3 (150-375) MPV 8.8 fl (7.4-10.4) Immature Gran % (Auto) 0.2 % (0-0.5) Neut % (Auto) 97.5 H % (45.5-73.1) Lymph % (Auto) 1.6 L % (18.3-44.2) [place] % (Auto) 0.4 L % (2.6-8.5) Eos % (Auto) 0.1 % (0-4.4) Baso % (Auto) 0.2 % (0.2-1.2) Lymph # (Auto) 0.13 L K/mm3 (0.9-3.2) [place] # (Auto) 0.0 L K/mm3 (0.1-0.6) Eos # (Auto) 0.0 K/mm3 (0-0.3) Baso # (Auto) 0.0 K/mm3 (0.0-0.1) Abs Immat Gran (auto) 0.02 K/mm3 (0.00-0.031) Absolute Neuts (auto) 8.1 H K/mm3 (1.3-6.7) Absolute Nucleated RBC 0.000 K/mm3 (0.0-0.012) Nucleated RBC % 0.0 % (0.0-0.2) Sodium 135 L mmol/L (137-145) Potassium 3.3 L mmol/L (3.4-5.0) Chloride 104 mmol/L (98-107) Carbon Dioxide 26 mmol/L (22-30) Anion Gap 5 mmol/L (4-12) BUN 25 H mg/dL (7-17) Creatinine 0.95 mg/dL (0.7-1.0) Estim Creat Clear Calc 55 ml/min Estimated GFR 60 (59 - ) Glucose 94 mg/dL (65-110) Lactic Acid 4.2 H* mmol/L (0.7-2.0) Calcium 9.0 mg/dL (8.4-10.2) Total Bilirubin 1.2 mg/dL (0.2-1.3) AST 35 U/L (14-36) ALT 20 U/L (6-35) Alkaline Phosphatase 57 U/L (38-126) Total Protein 6.3 g/dL (6.3-8.2) Albumin 3.8 g/dL (3.5-5.1) Procalcitonin Pending Urine Color Yellow (Yellow) Urine Appearance Clear (Clear) Urine pH 8.0 (5.0-9.0) Ur Specific [place] 1.012 (1.001-1.035) Urine Protein Negative mg/dL (Negative) Urine Glucose (UA) Negative mg/dL (Negative) Urine Ketones Trace H mg/dL (Negative) Ur Blood (Man) 2+ H (Negative) Urine Nitrate Positive H (Negative) Urine Bilirubin Negative (Negative) Urine Urobilinogen 0.2 mg/dL (<2.0) Leukocyte Esterase Rfl 1+ H JES/UL (Negative) Urine RBC 21-50 H /hpf (0-2) Urine WBC 11-20 H /hpf (0-3) Ur Squamous Epith Cells None seen /hpf (Few) Urine Bacteria 4+ H /hpf Urine Casts 0-2 ECG: ST 137 Patient hx anesthesia problems: none Family hx anesthesia problems: none Results Review: All pre-operative results and documents have been reviewed as part of the pre- operative evaluation. [facility] Past Medical History Medical History Obstructive sleep apnea Paroxysmal ventricular tachycardia pt maintained on rhythmol 150mg daily, managed at [facility], follows annually Kidney stones Social History Social History Smoking status: Never smoker Exam Day of Procedure 03/07/25 15:41 Patient weight: normal Neurological: alert and oriented
[2025-03-07 15:45] LABS: Procalcitonin 17.6 ng/mL
--- NOTE | 2025-03-07 16:11 | P.CONUR_ITS ---
Assessment and Plan Assessment and plan (1) Ureterolithiasis: Code(s): N20.1 - Calculus of ureter Status: Acute Assessment and Plan: Obstructing 5mm distal right ureteral stone with fever Will take pt to OR today for cystoscopy right ureteral stent placement possible stone extraction (2) Urinary tract infection: Qualifiers: Hematuria presence: without hematuria Urinary tract infection type: s ite unspecified Qualified Code(s): N39.0 - Urinary tract infection, site not specified Code(s): N39.0 - Urinary tract infection, site not specified Status: Acute Assessment and Plan: Urine and Bld C pending Empiric abx started Urology Consult Note HPI Date Seen: 03/07/25 Requesting Physician: Karolyn Vazquez MD Primary Care Provider: Constance Srivastava, [employer] Consult Narrative Narrative: 59 y/o F with right flank pain and fever to 103. She reports associated nausea, vomiting, lightheadedness, dizziness, and general malaise. She denies dysuria, hematuria, chest pain, or shortness of breath. Denies any urinary symptoms including dysuria, urinary frequency, or urinary hesitancy. She does report a past medical history significant for kidney stones. Last occurrence around 10 years ago and did not require a stent at that time. ED workup showed: No leukocytosis, no anemia, sodium 135, potassium 3.3, creatinine 0.95 and GFR 60, lactic pending, UA consistent with UTI with no epithelial cells. CT of the abdomen/pelvis showed hydronephrosis of right kidney, 5 mm stone along right UVJ although pelvis severely obstructed from streak artifact. Review of Systems 2 Constitutional: Constitutional: Reports body ache(s), Reports chills and Reports fever(s) Respiratory: Respiratory: Reports no additional respiratory complaints Genitourinary: Genitourinary: Reports flank pain PMFSH Past Medical History Medical History Obstructive sleep apnea Paroxysmal ventricular tachycardia pt maintained on rhythmol 150mg daily, managed at [facility], follows annually Kidney stones Social History Social History Smoking status: Never smoker Meds Home Medications and Allergies Home Medications ?Medication ?Instructions ?Recorded ?Confirmed ?Type propafenone 150 mg tablet mg 03/07/25 History Allergies Allergy/AdvReac Type Severity Reaction Status Date / Time Sulfa (Sulfonamide Allergy Mild Joint Pain Verified 03/07/25 13:49 Antibiotics) Vital Signs Vital Signs - 24 hr 03/07/25 09:54 03/07/25 11:33 03/07/25 13:57 Temperature 36.8 C 37.3 C 39.4 C H Pulse Rate 130 H 86 136 H Respiratory Rate 18 14 18 Blood Pressure 105/65 138/84 149/81 H Pulse Oximetry 98 99 98 03/07/25 14:08 03/07/25 14:15 03/07/25 14:30 Temperature Pulse Rate 141 H 147 H 166 H Respiratory Rate 27 H 20 23 H Blood Pressure 164/73 H 149/81 H Pulse Oximetry 99 100 98 03/07/25 14:41 03/07/25 14:45 03/07/25 14:46 Temperature Pulse Rate 152 H 139 H 139 H Respiratory Rate 15 19 20 Blood Pressure 127/50 L 131/56 L Pulse Oximetry 96 94 95 03/07/25 15:00 03/07/25 15:01 Temperature Pulse Rate 134 H 135 H Respiratory Rate 21 H 21 H Blood Pressure 140/58 L Pulse Oximetry 96 98 Exam 2 HENMT: Head: normal to inspection Chest: Chest palpation & inspection: normal inspection of the chest Cardio: Rate: tachycardic : General: Yes CVA tenderness on the right Results Labs 03/07/25 11:38 03/07/25 11:38 Labs: Short CBC 03/07/25 Range/Units 11:38 WBC 8.3 (4.5-10.0) K/mm3 Hgb 12.7 (12.0-15.0) g/dL Hct 36.9 L (37.0-47.0) % Plt Count 106 L (150-375) k/mm3 BMP 03/07/25 11:38 Sodium 135 L Potassium 3.3 L Chloride 104 Carbon Dioxide 26 BUN 25 H Creatinine 0.95 Glucose 94 Calcium 9.0 Liver Function 03/07/25 Range/Units 11:38 Total Bilirubin 1.2 (0.2-1.3) mg/dL AST 35 (14-36) U/L ALT 20 (6-35) U/L Alkaline Phosphatase 57 (38-126) U/L Albumin 3.8 (3.5-5.1) g/dL Urine 03/07/25 Range/Units 12:35 Urine Color Yellow (Yellow) Urine Appearance Clear (Clear) Urine pH 8.0 (5.0-9.0) Ur Specific [place] 1.012 (1.001-1.035) Urine Protein Negative (Negative) mg/dL Urine Glucose (UA) Negative (Negative) mg/dL
--- NOTE | 2025-03-07 16:20 | WPDHPUPDATE1 ---
History and Physical Update Update Date/Time: 03/07/25 16:20 History and Physical has been reviewed, including an updated exam of the patient. There are NO changes in the patient's condition. Risks, benefits, and alternatives have been discussed and questions answered. Patient agrees to proceed with procedure.
[2025-03-07] MEDS: LACTATED RINGERS 1,000 ML 30 ML IV CONT ×2 (16:25→17:37)
--- NOTE | 2025-03-07 16:27 | P.PNAN_ITS ---
Anes - Eval Final PreProcedure Day of Procedure 03/07/25 16:27 Patient weight: normal Heart: regular rate and rhythm Lungs: clear to auscultation Airway: Mallampati scale class II Neurological: alert and oriented Last oral intake: >/= 8 hours ASA classification: III Emergent: no Anesthetic plan: proceed Anesthesia type and monitoring: general LMA and standard monitoring Results Review: All pre-operative results and documents have been reviewed as part of the pre- operative evaluation. Informed Consent: The patient's anesthetic plan and its attendant risks and benefits were discussed with the patient/family/POA. Questions were solicited and answers provided to the satisfaction of the patient/family/POA.
--- NOTE | 2025-03-07 16:59 | S_PTH ---
PATIENT: Daysi Block LOC: VII9TMF U#:[id number] AGE/SX: 59/F ROOM: 257 RE03/07/[address]: Radha Storm MD : 1965 BED: 01 DIS: 03/11/2025 SPEC #: [id number] RECD: 03/08/25 07:21 STATUS: NOELLE REQ #: [id number] LAMAR: 03/07/25 16:[address]: Jl Galloway DEPT: [facility] Surgical RECD BY: Caroline Coppola ENTERED: 03/08/25 07:21 SP TYPE: Surgical OTHR DR: MD Estevan Chang MD Deanna A. Weinacht, [employer] SUPER[employer]OR Tissues: A - Stone Procedures: Gross Exam Level 1 Crystalline Analysis
--- NOTE | 2025-03-07 17:08 | W.PM.PROC2 ---
Procedure Note - Detailed Date of Procedure 03/07/25 Pre-op Diagnosis infected right ureteral stone Post-op Diagnosis Same Procedure Performed Right ureteroscopy stone extraction with right stent placement Surgeon Jl Galloway MD Anesthesia General Indications obstructing infected distal right ureteral stone Findings 5mm distal right ureteral stone Description of Procedure Pt was taken back to the OR and place under general endotracheal anesthesia. Patient was positioned in dorsal lithotomy. Patient's genitalia was prepped and draped in sterile fashion. A 22f cystoscope was placed through the urethra into the bladder. Under fluoro contrast was noted in the right collecting system from earlier CT due to high grade obstruction. A wire was passed up the right ureter past the stone. An 8/10 dilator was used to dilate the intramural ureter. Rigid ureteroscopy was performed with very limited flow. The stone was noted and grasped the a stone basket and removed. There was no injury to the ureter noted. A 6f x 24cm JJ stent was placed over the wire with a nice curl in the bladder and renal pelvis. Pt tolerated this surgery well and taken to the PACU in stable condition. Implants 6f x 24cm JJ stent
[2025-03-07] MEDS: KETOROLAC 30 MG/ML VIAL (*BKC) IV PUSH (18:58)
--- NOTE | 2025-03-07 19:15 | ADMGEN ---
This patient, Daysi Block, was admitted to IMU Room 209-01 at 1815. Patient/family oriented to hospital policies and general routines including ID bracelet, bed and alarms, visiting hours, pain management, procedures, bathroom and other care routines, personal items, smoking policy, room service/diet, and visiting hours. Information on how to activate the Rapid Response Team has been discussed. Patient/Family are encouraged to report perceived risks to care and to ask questions if they do not understand what they are told or what they should do.
--- NOTE | 2025-03-07 21:00 | PC.NURSE ---
This patient, Daysi Block, was received from [facility] on 03/07/25 at 2100. Report received from DANIKA Phelan. Patient/family oriented to unit policies and routines
[2025-03-07] MEDS: NOREPINEPHRINE 8 MG/D5W 250 ML 8 MG/250 ML BAG 9.38 MG IV CONT (21:21)
[2025-03-07] MEDS: DEXTROSE 5%/LACTATED RINGERS 1,000 ML 125 ML IV CONT (21:39)
[2025-03-07] MEDS: MEROPENEM 1 GM in SODIUM CHLORIDE 0.9% IV 100 ML 200 ML IVPB (21:39)
[2025-03-07] MEDS: PANTOPRAZOLE SODIUM IV 40 MG VIAL IV PUSH (21:40)
--- NOTE | 2025-03-07 22:57 | P.PCNBED_ITS ---
Procedures Central Line Placement Right Femoral: Central Line Date: 03/07/25 Central Line Time: 22:25 Discussed w/ the patient/family/POA,the placement of a central venous catheter, including its clinical necessity/indication & associated potential risks, benifits and alternatives.: Yes The patient/family/POA understand(s) and acknowledge(s) the need to proceed with central venous catheter insertion as an important element of the patient's clinical management.: Yes Consent: I have discussed with the patient and/or surrogate, the non-emergent placement of a central venous catheter, including its clinical necessity/indication and associated potential risks and complications. The patient and/or surrogate understand(s) and acknowledge(s) the need to proceed with central venous catheter insertion as an important element of the patient's clinical management. Time Out Performed: Yes Patient Position: supine Patient placed on monitor/pulse ox: Yes Provider Prep: mask, sterile gown, sterile gloves, Max. sterile barrier precautions, cap and hand hygiene with conventional soap/water or alcohol based hand rub Central line prep: Povidone-Iodine 1%, 2% Chlorhexidine scrub, sterile full body sheet applied and other (patient masked) Local anesthesia used: lidocaine 1% Amount of anesthesia used (ml): 4 Sterile US Technique with sterile gel/sterile probe covers: Yes Central line lumen inserted: triple Panamanian: 7 Length (cm): 16 Depth of Insertion (cm): 16 Post Procedure: sutured in place, good blood return, all ports aspirated, flushed, capped, transparent dressing, hemostatic product, antimicrobial product and aseptic technique maintained throughout procedure Patient tolerated procedure: well Complications: none
--- NOTE | 2025-03-07 22:58 | PC.NURSE ---
This patient, Daysi Block, was transferred to [ ICU 8] on 03/07/25 at 2100. Personal belongings sent with patient. Report given to [Ivy ]. Appropriate documentation sent with patient.
[2025-03-08] VITALS (56 sets, daily range): BP systolic 71–134; BP diastolic 40–81; PULSE 68–113; RESP 11–22; TEMP 36.6–37.7; O2SAT 94–99
--- NOTE | 2025-03-08 | ECHO_ITS ---
Patient Info Name: Daysi Block Age: 59 years : 1965 Gender: Female Ht: 68 in Wt: 167 lbs BSA: 1.92 m2 HR: 93 bpm BP: 94 / 44 mmHg Technical Quality: Good Exam Date: 03/08/2025 9:34 AM Patient Status: I Admit Date: 03/07/2025 Exam Type: CA echo doppler color flow Complete two-dimensional, color flow and Doppler transthoracic echocardiogram is performed. Staff Referring Physician: Jl Galloway Doctor Of Dental Surgery: Rajendra Reina III Attending Provider: Karolyn Vazquez MD Summary 1. Complete two-dimensional, color flow and Doppler transthoracic echocardiogram is performed. 2. There is normal biventricular size and systolic function. 3. There are no significant valvular abnormalities. Left Ventricle The left ventricle is normal in size and systolic function. The left ventricular ejection fraction is visually estimated to be 60-65%. Right Ventricle The right ventricle is normal in size and systolic function. Left Atria The left atrium is normal size. Right Atria The right atrium is normal size. Atrial Septum The atrial septum is normal. Aortic Valve The aortic valve is probably trileaflet and opens well. There is no aortic regurgitation. Pulmonic Valve The pulmonic valve is not well visualized. Mitral Valve The mitral valve is normal. There is no mitral regurgitation. Tricuspid Valve The tricuspid valve is normal. There is no tricuspid regurgitation. Pericardium/Pleural Pericardium is normal in appearance with no evidence for significant pericardial effusion. Inferior Vena Cava Dilated inferior vena cava with <50% collapse upon inspiration consistent with significantly elevated right atrial pressure, 15 mmHg. Aorta The aortic root at the level of the sinus of Valsalva measures 2.7 cm in diameter. Left Ventricular Outflow Tract Name Value Normal LVOT 2D LVOT Diameter 2.0 cm LVOT Doppler LVOT Peak Velocity 93 cm/s LVOT Peak Gradient 3 mmHg LVOT Mean Gradient 2 mmHg LVOT VTI 18 cm LVOT VTI/AV VTI Ratio 1.0 LVOT Stroke Volume 56 ml LVOT CO 4.4 l/min LVOT CI 2.3 l/min/m2 Pulmonic Valve Name Value Normal PV Doppler PV Peak Velocity 81 cm/s PV Peak Gradient 3 mmHg PV Mean Gradient 2 mmHg Mitral Valve Name Value Normal MV Doppler MV Peak Gradient 3 mmHg MV Mean Gradient 2 mmHg MV Area (Cont Eq VTI) 2.2 cm2 MV Diastolic Function MV E Peak Velocity 87 cm/s MV A Peak Velocity 81 cm/s MV E/A 1.1 MV Decel Time (PW) 167 ms MV Annular TDI MV E/e' (Septal) 9.7 MV E/e' (Lateral) 8.4 MV E/e' (Average) 9.1 Tricuspid Valve Name Value Normal Estimated PAP/RSVP RA Pressure 15 mmHg <=5 TV Annular TDI TV Lateral Katie s' Velocity 13.6 cm/s >=9.5 Aortic Valve Name Value Normal AV Doppler AV Peak Velocity 105 cm/s AV Peak Gradient 4 mmHg AV Mean Gradient 3 mmHg AV VTI 18 cm AV Area (Cont Eq VTI) 3.0 cm2 >=3.0 AV Area (Cont Eq Ger) 2.7 cm2 AV DI (Ger) 0.89 AV Regurgitation 2D LVOT Area 3.0 cm2 Ventricles Name Value Normal LV Dimensions 2D/MM IVS Diastolic Thickness (2D) 0.8 cm 0.6-1.0 LVID Diastole (2D) 4.1 cm 3.8-5.2 LVIW Diastolic Thickness (2D) 0.8 cm 0.6-0.9 LVID Systole (2D) 2.7 cm 2.2-3.5 LVOT Diameter 2.0 cm LV Mass (2D Cubed) 93.79 g 67.00-162.00 LV Mass Index (2D Cubed) 49 g/m2 43-95 Relative Wall Thickness (2D) 0.39 <=0.42 LV Fractional Shortening/Ejection Fraction 2D/MM LV Fractional Shortening (2D) 33 % 27-45 LV EF (2D Teichholz) 63 % LV Diastolic Volume (4C MOD) 82 ml LV EF (4C MOD) 60 % LV Diastolic Volume (2C MOD) 92 ml LV EF (2C MOD) 54 % LV Diastolic Volume (BP MOD) 91 ml 46-106 LV Diastolic Volume Index (BP MOD) 47 ml/m2 29-61 LV Systolic Volume (BP MOD) 40 ml 14-42 LV Systolic Volume Index (BP MOD) 21 ml/m2 8-24 LV EF (BP MOD) 56 % 54-74 LV Diastolic Length (4C) 7.8 cm LV Systolic Length (4C) 6.3 cm LV Stroke Volume (4C MOD) 49 ml Atria Name Value Normal LA Dimensions LA Volume (4C A-L) 39 ml RA Dimensions RA Systolic Major [place] Length (4C) 4.5 cm 2.2-2.8 RA Area (4C) 11.2 cm2 <=18.0 Report Signatures
[2025-03-08 03:52] LABS: MRSA (PCR) NOT DETECTED (NOT DETECTE)
[2025-03-08] MEDS: CENTRAL LINE FLUSH 10 ML IV PUSH ×3 (05:10→23:10)
[2025-03-08 05:13] LABS: Hematocrit 31.7 % (37.0-47.0); Hemoglobin 11.0 g/dL (12.0-15.0); Immature Platelet Fraction Pct 1.9 % (0.9-11.2); Mean Corpuscular HGB Conc 34.7 g/dl (32-36); Mean Corpuscular Hemoglobin 31.9 pg (26-34); Mean Corpuscular Volume 91.9 fl (80-100); Platelet Count Result 65 k/mm3 (150-375); Red Blood Count 3.45 M/mm3 (4.2-5.4); White Blood Count 25.0 K/mm3 (4.5-10.0)
[2025-03-08] MEDS: ONDANSETRON INJ 4 MG/2 ML VIAL IV PUSH ×2 (05:20→23:35)
[2025-03-08] MEDS: DEXTROSE 5%/LACTATED RINGERS 1,000 ML 125 ML IV CONT (05:20)
[2025-03-08] MEDS: NOREPINEPHRINE 8 MG/D5W 250 ML 8 MG/250 ML BAG 35.63 MG IV CONT (05:21)
[2025-03-08] MEDS: MEROPENEM 1 GM in SODIUM CHLORIDE 0.9% IV 100 ML 200 ML IVPB ×2 (05:23→16:37)
[2025-03-08 05:25] LABS: Alanine Aminotransferase 34 U/L (6-35); Albumin Level 2.9 g/dL (3.5-5.1); Alkaline Phosphatase 34 U/L (38-126); Anion Gap 7 mmol/L (4-12); Aspartate Amino Transferase 43 U/L (14-36); Bilirubin,Total 0.9 mg/dL (0.2-1.3); Blood Urea Nitrogen 27 mg/dL (7-17); Calcium 7.8 mg/dL (8.4-10.2); Carbon Dioxide 20 mmol/L (22-30); Chloride 107 mmol/L (98-107); Estimated CRCL calculation 39 ml/min; Estimated Glomerular Filt Rate 39; Glucose 126 mg/dL (65-110); Magnesium 1.3 mg/dL (1.6-2.3); Potassium 3.6 mmol/L (3.4-5.0); Sodium 134 mmol/L (137-145); Total Protein 5.1 g/dL (6.3-8.2)
[2025-03-08] MEDS: ACETAMINOPHEN 325 MG TABLET 650 MG PO ×3 (05:33→19:23)
[2025-03-08 05:45] LABS: Band Neutrophils Percent 11 % (0-6); Lymphocytes Absolute Manual 1.75 K/mm3 (1.1-4.5); Lymphocytes Percent Manual 7.0 % (18-44); Monocytes Absolute Manual 1.75 K/mm3 (0.1-0.90); Monocytes Percent Manual 7 % (3-9); Neutrophils Absolute Manual 21.50 K/mm3 (1.3-6.7); Neutrophils Percent Manual 75 % (46-73); Total Cells Counted 100
[2025-03-08 05:47] LABS: Schistocytes None Seen
[2025-03-08] MEDS: DOCUSATE SODIUM 100 MG CAPSULE PO ×2 (08:06→16:37)
[2025-03-08] MEDS: PANTOPRAZOLE SODIUM IV 40 MG VIAL IV PUSH (08:06)
--- NOTE | 2025-03-08 09:10 | WPDCNINT2 ---
Assessment and Plan Assessment and plan (1) Septic shock: Code(s): A41.9 - Sepsis, unspecified organism; R65.21 - Severe sepsis with septic shock Status: Acute Assessment and Plan: Severe septic shock secondary to pyelonephritis and UTI secondary to obstructing stone Patient status post a stent placement Urine and blood culture sent and pending Continue empiric meropenem to cover for ESBL Patient has received more than 4 L of crystalloids. Will also give albumin IV Change IV fluids to bicarb Add vasopressin infusion to Levophed infusion At stress dose hydrocortisone Wean Levophed Check echocardiogram (2) Urinary tract infection: Qualifiers: Hematuria presence: without hematuria Urinary tract infection type: site unspecified Qualified Code(s): N39.0 - Urinary tract infection, site not specified Code(s): N39.0 - Urinary tract infection, site not specified Status: Acute Assessment and Plan: See above (3) Pyelonephritis: Code(s): N12 - Tubulo-interstitial nephritis, not specified as acute or chronic Status: Acute Assessment and Plan: See above (4) Ureterolithiasis: Code(s): N20.1 - Calculus of ureter Status: Acute Assessment and Plan: See above (5) Hydronephrosis: Code(s): N13.30 - Unspecified hydronephrosis Status: Acute Assessment and Plan: See above (6) MARCUS (acute kidney injury): Code(s): N17.9 - Acute kidney failure, unspecified Status: Acute Assessment and Plan: Creatinine 1.38 likely secondary to combination of obstruction and shock Treatment of shock as above. Patient now has a stent as above Monitor urine output electrolytes and creatinine (7) Abnormality of right ventricular outflow tract: Code(s): Q20.8 - Other congenital malformations of cardiac chambers and connections Status: Acute Assessment and Plan: Check echo Continue propafenone Plan DVT prophylaxis -subcu heparin Stress ulcer prophylaxis -Protonix Nutrition -start diet Code Status - Full Code Total Critical Care Time - 30 minutes Due to a high probability of clinically significant, life threatening deterioration, the patient required my highest level of preparedness to intervene emergently and I personally spent this critical care time directly and personally managing the patient. This critical care time included obtaining a history; examining the patient; pulse oximetry; ordering and review of studies; arranging urgent treatment with development of a management plan; evaluation of patient's response to treatment; frequent reassessment; and discussions with other providers. It was exclusive of separately billable procedures and treating other patients and teaching time. Please see Assessment and Plan section and the rest of the note for further information on patient assessment and treatment [employer] Operator Consult Note Consult date: 03/08/25 Reason for consult: Septic shock HPI: Daysi Block is a 59 year old female with PMH of paroxysmal ventricular tachycardia,RVOT and kidney stones presents to ER with right flank pain which started acutely while she was sleeping at 4:30 a.m. yesterday. Patient described the pain as pain as severe, in right flank, crampy, radiation into her right upper quadrant, constant, and no modifying factors prior to arrival. She also reported associated nausea, vomiting, lightheadedness, dizziness, and general malaise. She denied dysuria, hematuria, fever, chills, chest pain, or shortness of breath. No dysuria, urinary frequency, or urinary hesitancy. Initial VS at presentation: 98.3? F, HR 1:30 a.m. are 18, 105/65, and 98% on RA. Workup in the ER showed No leukocytosis, no anemia, sodium 135, potassium 3.3, creatinine 0.95 and GFR 60, lactic pending, UA consistent with UTI with no epithelial cells. CT of the abdomen/pelvis showed hydronephrosis of right kidney, almost certainly due to 5 mm stone along right UVJ although pelvis severely obstructed from streak artifact. Patient was taken to the operating room and underwent stent placement. Patient received 2 L fluid bolus. Postprocedure patient was hypotensive in step-down unit. Patient was given another L bolus and transferred to ICU. Patient was started on Levophed infusion. A right femoral central venous catheter was placed. This morning when I evaluated the patient she states she feels much better and feels tired and weak. She denies any pain at this time. No fever chills dysuria hematuria hematochezia melena. All other systems reviewed and were negative. Patient continues to min Levophed infusion and is on IV fluids. He felt infusion is at 19 mcg PMFSH Past Medical History Medical History (Updated 03/08/25 @ 09:12 by Estevan Chadwick MD) Abnormality of right ventricular outflow tract Obstructive sleep apnea Paroxysmal ventricular tachycardia pt maintained on rhythmol 150mg daily, managed at [facility], follows annually Kidney stones Family History Family History (Updated 03/07/25 @ 18:35 by Laura Garcia RN) Mother Cancer Hypertension Father Hypertension Diabetes mellitus Father Cancer Social History Social History Smoking status: Never smoker Alcohol intake: never Substance use: never Substance use type: does not use Lack of Transportation: YES Lack of Food: Never True Current Housing: I Have Housing Concerned About Future Housing: No Difficulty Paying Gas/Electric Bills: No Difficulty Paying for Meds: No Currently Unemployed: No Education: Associate Degree Difficulty w/ Childcare or Family Care: No Spiritual care concerns: No Meds Home Medications and Allergies Home Medications ?Medication ?Instructions ?Recorded ?Confirmed ?Type calcium 600 mg (as 1 tablet PO BID 03/07/25 03/07/25 History carbonate)-vitamin D3 5 mcg (200 unit) tablet (Calcium 600 + D(3)) magnesium citrate 100 mg capsule 100 mg PO Q12H 03/07/25 03/07/25 History mecobalamin (vitamin B12) 1,000 1,000 mcg PO DAILY 03/07/25 03/07/25 History mcg chewable tablet (B12 Active) multivitamin (Daily Multi-Vitamin 1 tablet PO DAILY 03/07/25 03/07/25 History tablet) omega 5-mpr-tiw-fish oil 1,000 mg 1 cap PO Q12H 03/07/25 03/07/25 History (120 mg-180 mg) capsule (Fish Oil) propafenone 150 mg tablet 150 mg PO Q12H HEART RATE 03/07/25 03/07/25 History semaglutide (weight loss) 1.25 mg subcut WEEKLY 03/07/25 03/07/25 History Allergies Allergy/AdvReac Type Severity Reaction Status Date / Time Sulfa (Sulfonamide Allergy Mild Joint Pain Verified 03/07/25 18:27 Antibiotics) Vital Signs Vital Signs - 24 hr 03/07/25 09:54 03/07/25 11:33 03/07/25 13:57 Temperature 36.8 C 37.3 C 39.4 C H Pulse Rate 130 H 86 136 H Respiratory Rate 18 14 18 Blood Pressure 105/65 138/84 149/81 H Pulse Oximetry 98 99 98 Oxygen Delivery Oxygen Flow Rate 03/07/25 14:08 03/07/25 14:15 03/07/25 14:30 Temperature Pulse Rate 141 H 147 H 166 H Respiratory Rate 27 H 20 23 H Blood Pressure 164/73 H 149/81 H Pulse Oximetry 99 100 98 Oxygen Delivery Oxygen Flow Rate 03/07/25 14:41 03/07/25 14:45 03/07/25 14:46 Temperature Pulse Rate 152 H 139 H 139 H Respiratory Rate 15 19 20 Blood Pressure 127/50 L 131/56 L Pulse Oximetry 96 94 95 Oxygen Delivery Oxygen Flow Rate 03/07/25 15:00 03/07/25 15:01 03/07/25 15:15 Temperature Pulse Rate 134 H 135 H 141 H Respiratory Rate 21 H 21 H 24 H Blood Pressure 140/58 L 137/55 L Pulse Oximetry 96 98 100 Oxygen Delivery Oxygen Flow Rate 03/07/25 15:16 03/07/25 15:40 03/07/25 15:45 Temperature Pulse Rate 141 H 130 H Respiratory Rate 14 18 Blood Pressure Pulse Oximetry 99 94 93 Oxygen Delivery Oxygen Flow Rate 03/07/25 16:00 03/07/25 16:23 03/07/25 17:07 Temperature 38.4 C H 37.5 C Pulse Rate 131 H 136 H 125 H Respiratory Rate 20 18 18 Blood Pressure 109/80 92/54 L Pulse Oximetry 92 99 100 Oxygen Delivery Simple Face Mask Oxygen Flow Rate 8 03/07/25 17:20 03/07/25 17:35 03/07/25 17:45 Temperature 36.6 C 38.5 C H Pulse Rate 125 H 123 H 124 H Respiratory Rate 19 18 18 Blood Pressure 92/67 L 88/51 L 86/63 L Pulse Oximetry 100 98 97 Oxygen Delivery Simple Face Mask Room Air Room Air Oxygen Flow Rate 8 03/07/25 18:00 03/07/25 19:09 03/07/25 20:00 Temperature 36.9 C Pulse Rate 128 H 121 H Respiratory Rate 19 16 Blood Pressure 90/48 L 93/44 L 75/36 L Pulse Oximetry 96 97 Oxygen Delivery Room Air Oxygen Flow Rate 03/07/25 20:00 03/07/25 20:21 03/07/25 20:28 Temperature Pulse Rate 120 H 112 H 119 H Respiratory Rate Blood Pressure 75/38 L 74/39 L Pulse Oximetry Oxygen Delivery Oxygen Flow Rate 03/07/25 20:35 03/07/25 20:48 03/07/25 20:56 Temperature Pulse Rate 119 H 126 H 120 H Respiratory Rate Blood Pressure 80/38 L 91/45 L 75/41 L Pulse Oximetry Oxygen Delivery Oxygen Flow Rate 03/07/25 21:00 03/07/25 21:15 03/07/25 21:21 Temperature 37.3 C Pulse Rate 123 H 118 H Respiratory Rate 14 Blood Pressure 80/46 L 84/42 L Pulse Oximetry 97 Oxygen Delivery Room Air Oxygen Flow Rate 03/07/25 21:39 03/07/25 21:57 03/07/25 22:00 Temperature Pulse Rate 117 H 115 H 120 H Respiratory Rate Blood Pressure 79/44 L 86/48 L 89/51 L Pulse Oximetry Oxygen Delivery Oxygen Flow Rate 03/07/25 22:00 03/07/25 22:00 03/07/25 22:55 Temperature Pulse Rate 120 H 120 H 116 H Respiratory Rate 22 H Blood Pressure 89/51 L 91/52 L Pulse Oximetry 97 Oxygen Delivery Oxygen Flow Rate 03/07/25 23:00 03/07/25 23:19 03/07/25 23:50 Temperature Pulse Rate 113 H 112 H 108 H Respiratory Rate 18 Blood Pressure 81/65 L 99/57 L 101/62 Pulse Oximetry 96 Oxygen Delivery Oxygen Flow Rate 03/08/25 00:00 03/08/25 00:00 03/08/25 00:00 Temperature 37.7 C H Pulse Rate 113 H 113 H Respiratory Rate 15 Blood Pressure 94/51 L Pulse Oximetry 97 Oxygen Delivery Room Air Oxygen Flow Rate 03/08/25 00:03 03/08/25 00:22 03/08/25 00:33 Temperature Pulse Rate 107 H 106 H 110 H Respiratory Rate Blood Pressure 94/51 L 71/40 L 76/53 L Pulse Oximetry Oxygen Delivery Oxygen Flow Rate 03/08/25 01:00 03/08/25 01:02 03/08/25 01:16 Temperature Pulse Rate 103 H 105 H 103 H Respiratory Rate 16 Blood Pressure 88/46 L 88/46 L 90/54 L Pulse Oximetry 95 Oxygen Delivery Oxygen Flow Rate 03/08/25 02:00 03/08/25 02:00 03/08/25 02:00 Temperature Pulse Rate 101 H 101 H 101 H Respiratory Rate 11 L Blood Pressure 87/53 L 87/53 L Pulse Oximetry 96 Oxygen Delivery Oxygen Flow Rate 03/08/25 03:00 03/08/25 04:00 03/08/25 04:00 Temperature 36.6 C Pulse Rate 97 97 97 Respiratory Rate 18 Blood Pressure 93/57 L 98/55 L Pulse Oximetry 96 Oxygen Delivery Oxygen Flow Rate 03/08/25 04:00 03/08/25 04:00 03/08/25 05:00 Temperature 36.9 C Pulse Rate 97 96 Respiratory Rate 16 18 Blood Pressure 98/55 L 89/72 L Pulse Oximetry 96 98 Oxygen Delivery Room Air Oxygen Flow Rate 03/08/25 05:16 03/08/25 05:21 03/08/25 05:21 Temperature Pulse Rate 95 95 95 Respiratory Rate Blood Pressure 97/81 L 97/81 L 97/81 L Pulse Oximetry Oxygen Delivery Oxygen Flow Rate 03/08/25 05:34 03/08/25 05:54 03/08/25 06:00 Temperature Pulse Rate 93 106 H 93 Respiratory Rate 20 Blood Pressure 109/54 L 114/72 90/66 L Pulse Oximetry 99 Oxygen Delivery Oxygen Flow Rate 03/08/25 06:00 03/08/25 06:00 03/08/25 06:52 Temperature Pulse Rate 93 93 91 Respiratory Rate Blood Pressure 90/66 L 93/49 L Pulse Oximetry Oxygen Delivery Oxygen Flow Rate 03/08/25 07:00 03/08/25 07:08 03/08/25 07:29 Temperature Pulse Rate 90 92 Respiratory Rate 12 18 Blood Pressure 99/63 L 97/44 L Pulse Oximetry 96 Oxygen Delivery Oxygen Flow Rate 03/08/25 08:00 03/08/25 08:00 Temperature 37.7 C H Pulse Rate 92 93 Respiratory Rate 20 Blood Pressure 94/44 L 94/44 L Pulse Oximetry 98 Oxygen Delivery Oxygen Flow Rate Exam Narrative: General: Pt is alert awake and in NAD Lungs/Chest: Trachea central Clear BS B/L, No crackles or wheezing. Cardiac: RRR. Normal S1 S2. No murmurs Circulation: Pedal pulses are intact and symmetrical. Abdomen: Normal bowel sounds.. Soft.. ND. Mild tenderness in right flank no guarding or rigidity Extremities: No clubbing, cyanosis or edema. Warm : Leach in place Neurologic: Follows commands. Moves all 4 extremities PERRL AO x3 Skin: No Rash Results Labs 03/08/25 05:06 03/08/25 05:06 Labs: Short CBC 03/07/25 03/08/25 Range/Units 11:38 05:06 WBC 8.3 25.0 H (4.5-10.0) K/mm3 Hgb 12.7 11.0 L (12.0-15.0) g/dL Hct 36.9 L 31.7 L (37.0-47.0) % Plt Count 106 L 65 L (150-375) k/mm3 BMP 03/07/25 03/08/25 11:38 05:06 Sodium 135 L 134 L Potassium 3.3 L 3.6 Chloride 104 107 Carbon Dioxide 26 20 L BUN 25 H 27 H Creatinine 0.95 1.38 H Glucose 94 126 H Calcium 9.0 7.8 L Liver Function 03/07/25 03/08/25 Range/Units 11:38 05:06 Total Bilirubin 1.2 0.9 (0.2-1.3) mg/dL AST 35 43 H (14-36) U/L ALT 20 34 (6-35) U/L Alkaline Phosphatase 57 34 L (38-126) U/L Albumin 3.8 2.9 L (3.5-5.1) g/dL Urine 03/07/25 Range/Units 12:35 Urine Color Yellow (Yellow) Urine Appearance Clear (Clear) Urine pH 8.0 (5.0-9.0) Ur Specific [place] 1.012 (1.001-1.035) Urine Protein Negative (Negative) mg/dL Urine Glucose (UA) Negative (Negative) mg/dL Quality VTE Prophylaxis VTE prophylaxis: pharmacologic ordered Hospitalist MIPS Advance Care Plan I have confirmed that the patient's Advanced Care Plan is present, code status is documented, or surrogate decision maker is listed in patient medical record.: Yes Medication Reconciliation I have utilized all available resources to obtain, update and review the patients current medications (includes all prescriptions, OTC, herbals, cannabis, and nutritional supplements).: Yes
[2025-03-08] MEDS: CALCIUM GLUC 2,000 MG/NS 100ML 2,000 MG/100 ML BAG 100 MG IVPB (09:14)
[2025-03-08] MEDS: POTASSIUM BICARBONATE 25 MEQ TABEF 50 MEQ PO (09:15)
[2025-03-08] MEDS: MAGNESIUM SULF 2 GM/WATER 50ML 2 GM/50 ML BAG IVPB (09:17)
--- NOTE | 2025-03-08 09:20 | WPDUROPN2 ---
Progress Note: A&P Assessment and Plan (1) Ureterolithiasis: Code(s): N20.1 - Calculus of ureter Status: Acute Assessment and Plan: - S/p stone extraction and Right ureteral stent placement 03/07 - Pt to follow up outpatient for stent pull 1 week after discharge (2) Urinary tract infection: Qualifiers: Hematuria presence: without hematuria Urinary tract infection type: site unspecified Qualified Code(s): N39.0 - Urinary tract infection, site not specified Code(s): N39.0 - Urinary tract infection, site not specified Status: Acute Assessment and Plan: - Continue broad spectrum Abx - UCx/Blood Cx pending; tailor to susceptibilities once available Subjective Subjective Date/Time Seen: 03/08/25 09:20 Interval history: NAEO; pt resting comfortably in bed. Reports continued fatigue and mild flank pressure. Pain largely resolved. Exam Const: General: comfortable and no acute distress Eyes: General: appearance normal, both eyes and all related structures Resp: Effort & Inspection: normal respiratory effort Skin: General skin exam: normal color Neuro: Speech: normal speech Extrem: General: normal to inspection Psych: Mental Status: mental status grossly normal Affect: normal affect Objective Data Vital Signs Vital Signs: Vital Signs - 24 hr 03/07/25 09:54 03/07/25 11:33 03/07/25 13:57 Temperature 36.8 C 37.3 C 39.4 C H Pulse Rate 130 H 86 136 H Respiratory Rate 18 14 18 Blood Pressure 105/65 138/84 149/81 H Pulse Oximetry 98 99 98 Oxygen Delivery Oxygen Flow Rate 03/07/25 14:08 03/07/25 14:15 03/07/25 14:30 Temperature Pulse Rate 141 H 147 H 166 H Respiratory Rate 27 H 20 23 H Blood Pressure 164/73 H 149/81 H Pulse Oximetry 99 100 98 Oxygen Delivery Oxygen Flow Rate 03/07/25 14:41 03/07/25 14:45 03/07/25 14:46 Temperature Pulse Rate 152 H 139 H 139 H Respiratory Rate 15 19 20 Blood Pressure 127/50 L 131/56 L Pulse Oximetry 96 94 95 Oxygen Delivery Oxygen Flow Rate 03/07/25 15:00 03/07/25 15:01 03/07/25 15:15 Temperature Pulse Rate 134 H 135 H 141 H Respiratory Rate 21 H 21 H 24 H Blood Pressure 140/58 L 137/55 L Pulse Oximetry 96 98 100 Oxygen Delivery Oxygen Flow Rate 03/07/25 15:16 03/07/25 15:40 03/07/25 15:45 Temperature Pulse Rate 141 H 130 H Respiratory Rate 14 18 Blood Pressure Pulse Oximetry 99 94 93 Oxygen Delivery Oxygen Flow Rate 03/07/25 16:00 03/07/25 16:23 03/07/25 17:07 Temperature 38.4 C H 37.5 C Pulse Rate 131 H 136 H 125 H Respiratory Rate 20 18 18 Blood Pressure 109/80 92/54 L Pulse Oximetry 92 99 100 Oxygen Delivery Simple Face Mask Oxygen Flow Rate 8 03/07/25 17:20 03/07/25 17:35 03/07/25 17:45 Temperature 36.6 C 38.5 C H Pulse Rate 125 H 123 H 124 H Respiratory Rate 19 18 18 Blood Pressure 92/67 L 88/51 L 86/63 L Pulse Oximetry 100 98 97 Oxygen Delivery Simple Face Mask Room Air Room Air Oxygen Flow Rate 8 03/07/25 18:00 03/07/25 19:09 03/07/25 20:00 Temperature 36.9 C Pulse Rate 128 H 121 H Respiratory Rate 19 16 Blood Pressure 90/48 L 93/44 L 75/36 L Pulse Oximetry 96 97 Oxygen Delivery Room Air Oxygen Flow Rate 03/07/25 20:00 03/07/25 20:21 03/07/25 20:28 Temperature Pulse Rate 120 H 112 H 119 H Respiratory Rate Blood Pressure 75/38 L 74/39 L Pulse Oximetry Oxygen Delivery Oxygen Flow Rate 03/07/25 20:35 03/07/25 20:48 03/07/25 20:56 Temperature Pulse Rate 119 H 126 H 120 H Respiratory Rate Blood Pressure 80/38 L 91/45 L 75/41 L Pulse Oximetry Oxygen Delivery Oxygen Flow Rate 03/07/25 21:00 03/07/25 21:15 03/07/25 21:21 Temperature 37.3 C Pulse Rate 123 H 118 H Respiratory Rate 14 Blood Pressure 80/46 L 84/42 L Pulse Oximetry 97 Oxygen Delivery Room Air Oxygen Flow Rate 03/07/25 21:39 03/07/25 21:57 03/07/25 22:00 Temperature Pulse Rate 117 H 115 H 120 H Respiratory Rate Blood Pressure 79/44 L 86/48 L 89/51 L Pulse Oximetry Oxygen Delivery Oxygen Flow Rate 03/07/25 22:00 03/07/25 22:00 03/07/25 22:55 Temperature Pulse Rate 120 H 120 H 116 H Respiratory Rate 22 H Blood Pressure 89/51 L 91/52 L Pulse Oximetry 97 Oxygen Delivery Oxygen Flow Rate 03/07/25 23:00 03/07/25 23:19 03/07/25 23:50 Temperature Pulse Rate 113 H 112 H 108 H Respiratory Rate 18 Blood Pressure 81/65 L 99/57 L 101/62 Pulse Oximetry 96 Oxygen Delivery Oxygen Flow Rate 03/08/25 00:00 03/08/25 00:00 03/08/25 00:00 Temperature 37.7 C H Pulse Rate 113 H 113 H Respiratory Rate 15 Blood Pressure 94/51 L Pulse Oximetry 97 Oxygen Delivery Room Air Oxygen Flow Rate 03/08/25 00:03 03/08/25 00:22 03/08/25 00:33 Temperature Pulse Rate 107 H 106 H 110 H Respiratory Rate Blood Pressure 94/51 L 71/40 L 76/53 L Pulse Oximetry Oxygen Delivery Oxygen Flow Rate 03/08/25 01:00 03/08/25 01:02 03/08/25 01:16 Temperature Pulse Rate 103 H 105 H 103 H Respiratory Rate 16 Blood Pressure 88/46 L 88/46 L 90/54 L Pulse Oximetry 95 Oxygen Delivery Oxygen Flow Rate 03/08/25 02:00 03/08/25 02:00 03/08/25 02:00 Temperature Pulse Rate 101 H 101 H 101 H Respiratory Rate 11 L Blood Pressure 87/53 L 87/53 L Pulse Oximetry 96 Oxygen Delivery Oxygen Flow Rate 03/08/25 03:00 03/08/25 04:00 03/08/25 04:00 Temperature 36.6 C Pulse Rate 97 97 97 Respiratory Rate 18 Blood Pressure 93/57 L 98/55 L Pulse Oximetry 96 Oxygen Delivery Oxygen Flow Rate 03/08/25 04:00 03/08/25 04:00 03/08/25 05:00 Temperature 36.9 C Pulse Rate 97 96 Respiratory Rate 16 18 Blood Pressure 98/55 L 89/72 L Pulse Oximetry 96 98 Oxygen Delivery Room Air Oxygen Flow Rate 03/08/25 05:16 03/08/25 05:21 03/08/25 05:21 Temperature Pulse Rate 95 95 95 Respiratory Rate Blood Pressure 97/81 L 97/81 L 97/81 L Pulse Oximetry Oxygen Delivery Oxygen Flow Rate 03/08/25 05:34 03/08/25 05:54 03/08/25 06:00 Temperature Pulse Rate 93 106 H 93 Respiratory Rate 20 Blood Pressure 109/54 L 114/72 90/66 L Pulse Oximetry 99 Oxygen Delivery Oxygen Flow Rate 03/08/25 06:00 03/08/25 06:00 03/08/25 06:52 Temperature Pulse Rate 93 93 91 Respiratory Rate Blood Pressure 90/66 L 93/49 L Pulse Oximetry Oxygen Delivery Oxygen Flow Rate 03/08/25 07:00 03/08/25 07:08 03/08/25 07:29 Temperature Pulse Rate 90 92 Respiratory Rate 12 18 Blood Pressure 99/63 L 97/44 L Pulse Oximetry 96 Oxygen Delivery Oxygen Flow Rate 03/08/25 08:00 03/08/25 08:00 03/08/25 09:00 Temperature 37.7 C H Pulse Rate 92 93 85 Respiratory Rate 20 20 Blood Pressure 94/44 L 94/44 L 104/51 L Pulse Oximetry 98 98 Oxygen Delivery Oxygen Flow Rate Intake/Output Intake/Output: Intake & Output 03/05/25 03/06/25 03/07/25 03/08/25 23:59 23:59 23:59 23:59 Intake Total 2640.4 1370.3 Output Total 350 Balance 2640.4 1020.3 Meds/Results Medications: Active Medications Generic Name Dose Route Start Last Admin Trade Name Freq PRN Reason Stop Dose Admin Acetaminophen 650 mg 03/07/25 14:15 03/08/25 05:33 Acetaminophen 325 Mg Tablet PO 650 mg Q4H PRN Administration Mild Pain (1-3) or Fever Hydrocodone Bitart/Acetaminophen 1 tab 03/07/25 14:15 Hydrocodone/Acetaminophen (*Crx) 5-325 Mg Tablet PO Q4H PRN Moderate Pain (4-6) Hydrocodone Bitart/Acetaminophen 1 tab 03/07/25 17:16 Hydrocodone/Acetaminophen (*Crx) 5-325 Mg Tablet PO Q4H PRN Pain Rated 1-6 Bisacodyl 5 mg 03/07/25 14:15 Bisacodyl 5 Mg Tablet Ec PO DAILY PRN Constipation Calcium Carbonate 200 mg 03/07/25 14:15 Calcium Carbonate (Tums) 500 Mg (200 Mg Elemental) PO Q6H PRN Indigestion Docusate Sodium 100 mg 03/08/25 09:00 03/08/25 08:06 Docusate Sodium 100 Mg Capsule PO 100 mg BID ALBERTO Administration Heparin Sodium (Porcine) 5,000 units 03/07/25 21:00 03/08/25 08:06 Heparin Sodium 5,000 Units/Ml Vial SUB-Q 5,000 units Q12HR ALBERTO Administration Hydrocortisone Sodium Succinate 100 mg 03/08/25 08:39 Hydrocortisone Sodium Succinate 100 Mg/2 Ml Vial IV PUSH Q8HR [facility] Norepinephrine Bitartrate 8 mg in 250 mls @ 35.625 mls/hr 03/07/25 21:15 03/08/25 08:00 Levophed 8 Mg/D5w 250 Ml IV CONT 19 mcg/min .Q7H2M [facility] 35.63 mls/hr Protocol Titration 19 MCG/MIN Meropenem 1 gm/ Sodium 100 mls @ 200 mls/hr 03/08/25 17:00 Chloride IVPB Q12H [facility] Vasopressin 100 units/ 100 mls @ 2.4 mls/hr 03/08/25 09:10 Dextrose IV CONT .[id number] [facility] Protocol 0.04 UNITS/MIN Albumin Human 100 mls @ 60 mls/hr 03/08/25 12:00 Albutein IVPB 03/09/25 07:39 Q6HR [facility] Magnesium Sulfate 2 gm in 50 mls @ 25 mls/hr 03/08/25 08:27 Magnesium Sulf 2 Gm/Water 50ml IVPB 03/08/25 10:26 ONCE ONE Calcium Gluconate 2,000 mg in 100 mls @ 100 mls/hr 03/08/25 08:27 Calcium Gluc 2,000 Mg/Ns 100ml IVPB 03/08/25 09:26 ONCE ONE Sodium Bicarbonate 150 meq/ 1,100 mls @ 125 mls/hr 03/08/25 09:30 Sterile Water IV CONT .Q8H48M [facility] Morphine Sulfate 4 mg 03/07/25 14:15 Morphine Sulfate (*Crx) 4 Mg/Ml Inj IV PUSH Q4H PRN Pain Rated 7-10 Morphine Sulfate 2 mg 03/07/25 17:16 Morphine Sulfate (*Crx) 4 Mg/Ml Inj IV PUSH Q2H PRN Pain Rated 7-10 Naloxone HCl 0.1 mg 03/07/25 17:16 Naloxone Hcl 0.4 Mg/Ml Vial IV PUSH Q2M PRN Opiate Reversal Ondansetron HCl 4 mg 03/07/25 17:16 03/08/25 05:20 Ondansetron Inj 4 Mg/2 Ml Vial IV PUSH 4 mg Q12H PRN Administration Nausea And Vomiting Pantoprazole Sodium 40 mg 03/07/25 21:15 03/08/25 08:06 Pantoprazole Sodium Iv 40 Mg Vial IV PUSH 40 mg QAM ALBERTO Administration Perflutren Lipid Microsphere 0 ml 03/08/25 08:27 Perflutren Lipid Microspheres 1.5 Ml Vial Diluted To 10 Ml Total Volume IV PUSH 03/11/25 08:29 ONCE PRN adequate visualization Protocol Propafenone HCl 150 mg 03/08/25 09:15 Propafenone Hcl 150 Mg Tablet PO Q12HR ALBERTO Sodium Chloride 10 ml 03/08/25 06:00 03/08/25 05:10 Central Line Flush IV PUSH 10 ml Q8HR ALBERTO Administration Sodium Chloride 20 ml 03/07/25 22:41 Central Line Flush IV PUSH PRN PRN after blood draws Radiology Results: ITS Impressions Abdomen/Pelvis CT 03/07/25 13:16 IMPRESSION: 1. Hydronephrosis right kidney. Almost certainly due to 5 mm stone along right UVJ, although pelvis severely obscured from streak artifact. Ureter Stent X-Ray 03/07/25 17:26 IMPRESSION: 1. As mentioned above Labs Labs: Laboratory Results - last 24 hr 03/07/25 03/07/25 03/07/25 11:38 12:35 14:19 WBC 8.3 RBC 4.04 L Hgb 12.7 Hct 36.9 L MCV 91.3 MCH 31.4 MCHC 34.4 RDW 12.5 Plt Count 106 L MPV 8.8 Immature Gran % (Auto) 0.2 Neut % (Auto) 97.5 H Lymph % (Auto) 1.6 L [place] % (Auto) 0.4 L Eos % (Auto) 0.1 Baso % (Auto) 0.2 Lymph # (Auto) 0.13 L [place] # (Auto) 0.0 L Eos # (Auto) 0.0 Baso # (Auto) 0.0 Abs Immat Gran (auto) 0.02 Absolute Neuts (auto) 8.1 H Absolute Nucleated RBC 0.000 Total Counted Neutrophils % (Manual) Band Neutrophils % Lymphocytes % (Manual) Monocytes % (Manual) Nucleated RBC % 0.0 Abs Neuts (Manual) Abs Lymphs (Manual) Abs Monocytes (Manual) Platelet Estimate % Immature Plt Fraction Schistocytes Sodium 135 L Potassium 3.3 L Chloride 104 Carbon Dioxide 26 Anion Gap 5 BUN 25 H Creatinine 0.95 Estim Creat Clear Calc 55 Estimated GFR 60 Glucose 94 Lactic Acid 4.2 H* Calcium 9.0 Phosphorus Magnesium Total Bilirubin 1.2 AST 35 ALT 20 Alkaline Phosphatase 57 Total Protein 6.3 Albumin 3.8 Procalcitonin 17.6 Urine Color Yellow Urine Appearance Clear Urine pH 8.0 Ur Specific [place] 1.012 Urine Protein Negative Urine Glucose (UA) Negative Urine Ketones Trace H Ur Blood (Man) 2+ H Urine Nitrate Positive H Urine Bilirubin Negative Urine Urobilinogen 0.2 Leukocyte Esterase Rfl 1+ H Urine RBC 21-50 H Urine WBC 11-20 H Ur Squamous Epith Cells None seen Urine Bacteria 4+ H Urine Casts 0-2 Nasal MRSA (PCR) 03/07/25 03/08/25 03/08/25 19:08 02:33 05:06 WBC 25.0 H RBC 3.45 L Hgb 11.0 L Hct 31.7 L MCV 91.9 MCH 31.9 MCHC 34.7 RDW 13.0 Plt Count 65 L MPV 9.7 Immature Gran % (Auto) Not Reportable Neut % (Auto) Not Reportable Lymph % (Auto) Not Reportable [place] % (Auto) Not Reportable Eos % (Auto) Not Reportable Baso % (Auto) Not Reportable Lymph # (Auto) Not Reportable [place] # (Auto) Not Reportable Eos # (Auto) Not Reportable Baso # (Auto) Not Reportable Abs Immat Gran (auto) Not Reportable Absolute Neuts (auto) Not Reportable Absolute Nucleated RBC Not Reportable Total Counted 100 Neutrophils % (Manual) 75 H Band Neutrophils % 11 H Lymphocytes % (Manual) 7.0 L Monocytes % (Manual) 7 Nucleated RBC % Not Reportable Abs Neuts (Manual) 21.50 H Abs Lymphs (Manual) 1.75 Abs Monocytes (Manual) 1.75 H Platelet Estimate Decreased % Immature Plt Fraction 1.9 Schistocytes None seen Sodium 134 L Potassium 3.6 Chloride 107 Carbon Dioxide 20 L Anion Gap 7 BUN 27 H Creatinine 1.38 H Estim Creat Clear Calc 39 Estimated GFR 39 L Glucose 126 H Lactic Acid 2.6 H 3.3 H Calcium 7.8 L Phosphorus 3.2 Magnesium 1.3 L Total Bilirubin 0.9 AST 43 H ALT 34 Alkaline Phosphatase 34 L Total Protein 5.1 L Albumin 2.9 L Procalcitonin Urine Color Urine Appearance Urine pH Ur Specific [place] Urine Protein Urine Glucose (UA) Urine Ketones Ur Blood (Man) Urine Nitrate Urine Bilirubin Urine Urobilinogen Leukocyte Esterase Rfl Urine RBC Urine WBC Ur Squamous Epith Cells Urine Bacteria Urine Casts Nasal MRSA (PCR) Not detected
[2025-03-08] MEDS: HYDROCORTISONE SODIUM SUCCINATE 100 MG/2 ML VIAL IV PUSH ×3 (09:22→21:56)
[2025-03-08] MEDS: PROPAFENONE HCL 150 MG TABLET PO ×2 (09:26→21:58)
[2025-03-08] MEDS: VASOPRESSIN INJ 100 UNITS in DEXTROSE 5% 95 ML IV CONT (09:32)
[2025-03-08] MEDS: ALBUMIN HUMAN 25% 25 GM/100 ML 100 ML IVPB ×3 (12:10→23:09)
[2025-03-08] MEDS: SODIUM BICARBONATE 8.4% 150 MEQ in WATER, STERILE FOR INJECTION 950 ML 125 MEQ IV CONT ×2 (12:27→20:05)
[2025-03-08] MEDS: NOREPINEPHRINE 8 MG/D5W 250 ML 8 MG/250 ML BAG 9.38 MG IV CONT (16:00)
[2025-03-08 17:47] LABS: Anion Gap 9 mmol/L (4-12); Blood Urea Nitrogen 32 mg/dL (7-17); Calcium 8.1 mg/dL (8.4-10.2); Carbon Dioxide 22 mmol/L (22-30); Chloride 103 mmol/L (98-107); Estimated CRCL calculation 48 ml/min; Estimated Glomerular Filt Rate 50; Glucose 141 mg/dL (65-110); Magnesium 2.0 mg/dL (1.6-2.3); Potassium 4.1 mmol/L (3.4-5.0); Sodium 134 mmol/L (137-145)
[2025-03-08] MEDS: MELATONIN 5 MG TABLET PO (23:26)
[2025-03-09] VITALS (25 sets, daily range): BP systolic 94–136; BP diastolic 47–77; PULSE 65–83; RESP 11–25; TEMP 36.3–37.3; O2SAT 93–98
[2025-03-09] MEDS: ALPRAZolam (*CRX) 0.25 MG TABLET PO (00:29)
[2025-03-09] MEDS: ALBUMIN HUMAN 25% 25 GM/100 ML 100 ML IVPB (05:00)
[2025-03-09] MEDS: HYDROCORTISONE SODIUM SUCCINATE 100 MG/2 ML VIAL IV PUSH ×2 (05:00→13:14)
[2025-03-09] MEDS: CENTRAL LINE FLUSH 10 ML IV PUSH ×2 (05:00→13:14)
[2025-03-09] MEDS: MEROPENEM 1 GM in SODIUM CHLORIDE 0.9% IV 100 ML 200 ML IVPB ×2 (05:01→16:59)
[2025-03-09] MEDS: SODIUM BICARBONATE 8.4% 150 MEQ in WATER, STERILE FOR INJECTION 950 ML 125 MEQ IV CONT ×2 (05:01→13:12)
[2025-03-09] MEDS: ACETAMINOPHEN 325 MG TABLET 650 MG PO ×2 (05:15→11:21)
[2025-03-09 05:17] LABS: Hematocrit 30.0 % (37.0-47.0); Hemoglobin 10.1 g/dL (12.0-15.0); Immature Platelet Fraction Pct 4.1 % (0.9-11.2); Mean Corpuscular HGB Conc 33.7 g/dl (32-36); Mean Corpuscular Hemoglobin 31.1 pg (26-34); Mean Corpuscular Volume 92.3 fl (80-100); Red Blood Count 3.25 M/mm3 (4.2-5.4); White Blood Count 20.1 K/mm3 (4.5-10.0)
[2025-03-09 05:21] LABS: Platelet Count Result 55 k/mm3 (150-375)
[2025-03-09 05:38] LABS: Alanine Aminotransferase 98 U/L (6-35); Albumin Level 3.3 g/dL (3.5-5.1); Alkaline Phosphatase 50 U/L (38-126); Anion Gap 5 mmol/L (4-12); Aspartate Amino Transferase 107 U/L (14-36); Bilirubin,Total 0.8 mg/dL (0.2-1.3); Blood Urea Nitrogen 35 mg/dL (7-17); Calcium 8.0 mg/dL (8.4-10.2); Carbon Dioxide 30 mmol/L (22-30); Chloride 98 mmol/L (98-107); Estimated CRCL calculation 47 ml/min; Estimated Glomerular Filt Rate 49; Glucose 104 mg/dL (65-110); Magnesium 2.0 mg/dL (1.6-2.3); Potassium 4.0 mmol/L (3.4-5.0); Sodium 133 mmol/L (137-145); Total Protein 5.3 g/dL (6.3-8.2)
--- NOTE | 2025-03-09 08:15 | WPDUROPN2 ---
Progress Note: A&P Assessment and Plan (1) Ureterolithiasis: Code(s): N20.1 - Calculus of ureter Status: Acute Assessment and Plan: - S/p stone extraction and Right ureteral stent placement 03/07 - Pt to follow up outpatient for stent pull 1 week after discharge (2) Urinary tract infection: Qualifiers: Hematuria presence: without hematuria Urinary tract infection type: site unspecified Qualified Code(s): N39.0 - Urinary tract infection, site not specified Code(s): N39.0 - Urinary tract infection, site not specified Status: Acute Assessment and Plan: - Continue broad spectrum Abx - UCx/Blood Cx pending; tailor to susceptibilities once available Plan Once UCx results and pt on susceptibility driven Abx pt OK for discharge from urology perspective. Will follow peripherally until this time, please call for further quesitons. Subjective Subjective Date/Time Seen: 03/09/25 08:15 Interval history: NAEO; pt resting in bed eating. Reports feeling better as compared to yesterday. Exam Const: General: comfortable and no acute distress Eyes: General: appearance normal, both eyes and all related structures Resp: Effort & Inspection: normal respiratory effort Skin: General skin exam: normal color Neuro: Speech: normal speech Extrem: General: normal to inspection Psych: Mental Status: mental status grossly normal Affect: normal affect Objective Data Vital Signs Vital Signs: Vital Signs - 24 hr 03/08/25 09:00 03/08/25 09:26 03/08/25 09:32 Temperature Pulse Rate 85 85 86 Respiratory Rate 20 Blood Pressure 104/51 L 116/65 Pulse Oximetry 98 03/08/25 09:47 03/08/25 09:58 03/08/25 10:00 Temperature Pulse Rate 80 79 82 Respiratory Rate Blood Pressure 122/68 128/59 L Pulse Oximetry 03/08/25 10:00 03/08/25 10:01 03/08/25 10:31 Temperature 36.9 C Pulse Rate 88 79 76 Respiratory Rate 20 Blood Pressure 118/52 L 128/59 L 118/52 L Pulse Oximetry 99 03/08/25 10:55 03/08/25 11:00 03/08/25 12:00 Temperature Pulse Rate 78 83 84 Respiratory Rate 22 H 18 Blood Pressure 126/61 121/54 L 106/47 L Pulse Oximetry 98 98 03/08/25 12:00 03/08/25 12:00 03/08/25 12:00 Temperature Pulse Rate 83 78 79 Respiratory Rate Blood Pressure 106/47 L 106/47 L Pulse Oximetry 03/08/25 12:53 03/08/25 13:00 03/08/25 13:38 Temperature 36.8 C Pulse Rate 76 77 Respiratory Rate 12 Blood Pressure 122/57 L 122/54 L Pulse Oximetry 97 03/08/25 13:53 03/08/25 14:00 03/08/25 14:00 Temperature Pulse Rate 79 74 75 Respiratory Rate Blood Pressure 121/64 121/64 Pulse Oximetry 03/08/25 14:00 03/08/25 15:00 03/08/25 15:04 Temperature Pulse Rate 78 78 74 Respiratory Rate 19 17 Blood Pressure 130/60 121/55 L 121/55 L Pulse Oximetry 97 96 03/08/25 16:00 03/08/25 16:00 03/08/25 16:00 Temperature Pulse Rate 72 73 74 Respiratory Rate Blood Pressure 118/49 L 118/49 L Pulse Oximetry 03/08/25 16:00 03/08/25 16:17 03/08/25 16:30 Temperature 36.8 C Pulse Rate 79 83 Respiratory Rate 18 Blood Pressure 118/49 L 99/60 L 118/65 Pulse Oximetry 97 03/08/25 17:00 03/08/25 17:52 03/08/25 18:00 Temperature 36.7 C Pulse Rate 90 70 Respiratory Rate 20 Blood Pressure 97/44 L Pulse Oximetry 98 03/08/25 18:00 03/08/25 18:00 03/08/25 18:00 Temperature Pulse Rate 68 72 72 Respiratory Rate 18 Blood Pressure 127/63 127/63 127/63 Pulse Oximetry 97 03/08/25 19:00 03/08/25 19:23 03/08/25 20:00 Temperature 36.6 C Pulse Rate 72 72 69 Respiratory Rate 20 18 Blood Pressure 134/61 134/61 122/60 Pulse Oximetry 97 96 03/08/25 20:00 03/08/25 20:00 03/08/25 20:00 Temperature Pulse Rate 69 71 69 Respiratory Rate Blood Pressure 122/60 122/60 Pulse Oximetry 03/08/25 21:00 03/08/25 21:54 03/08/25 21:58 Temperature Pulse Rate 70 70 72 Respiratory Rate 15 Blood Pressure 123/58 L 120/51 L Pulse Oximetry 97 03/08/25 22:00 03/08/25 22:00 03/08/25 22:00 Temperature Pulse Rate 94 94 94 Respiratory Rate 18 Blood Pressure 123/67 123/67 Pulse Oximetry 97 03/08/25 22:04 03/08/25 23:00 03/08/25 23:10 Temperature Pulse Rate 78 80 75 Respiratory Rate 18 Blood Pressure 123/61 121/61 121/61 Pulse Oximetry 94 03/08/25 23:27 03/09/25 00:00 03/09/25 00:00 Temperature 36.7 C Pulse Rate 83 75 75 Respiratory Rate 20 Blood Pressure 125/56 L 126/64 Pulse Oximetry 96 03/09/25 00:00 03/09/25 00:00 03/09/25 01:00 Temperature Pulse Rate 75 75 77 Respiratory Rate 17 Blood Pressure 126/64 126/64 94/47 L Pulse Oximetry 93 03/09/25 02:00 03/09/25 02:00 03/09/25 02:00 Temperature Pulse Rate 73 73 73 Respiratory Rate 18 Blood Pressure 112/61 112/61 Pulse Oximetry 94 03/09/25 02:00 03/09/25 03:00 03/09/25 04:00 Temperature Pulse Rate 73 69 65 Respiratory Rate 17 Blood Pressure 112/61 119/59 L 119/62 Pulse Oximetry 94 03/09/25 04:00 03/09/25 04:00 03/09/25 04:00 Temperature 36.5 C Pulse Rate 65 65 67 Respiratory Rate 16 Blood Pressure 119/62 119/62 Pulse Oximetry 94 03/09/25 05:00 03/09/25 06:00 03/09/25 06:00 Temperature Pulse Rate 78 80 80 Respiratory Rate 16 14 Blood Pressure 133/71 135/77 Pulse Oximetry 96 97 03/09/25 06:00 03/09/25 06:00 03/09/25 07:00 Temperature Pulse Rate 80 80 66 Respiratory Rate 24 H Blood Pressure 135/77 135/77 112/70 Pulse Oximetry 93 Intake/Output Intake/Output: Intake & Output 03/06/25 03/07/25 03/08/25 03/09/25 23:59 23:59 23:59 23:59 Intake Total 2640.4 2970.8 1750 Output Total 700 650 Balance 2640.4 2270.8 1100 Meds/Results Medications: Active Medications Generic Name Dose Route Start Last Admin Trade Name Freq PRN Reason Stop Dose Admin Acetaminophen 650 mg 03/07/25 14:15 03/09/25 05:15 Acetaminophen 325 Mg Tablet PO 650 mg Q4H PRN Administration Mild Pain (1-3) or Fever Hydrocodone Bitart/Acetaminophen 1 tab 03/07/25 14:15 Hydrocodone/Acetaminophen (*Crx) 5-325 Mg Tablet PO Q4H PRN Moderate Pain (4-6) Hydrocodone Bitart/Acetaminophen 1 tab 03/07/25 17:16 Hydrocodone/Acetaminophen (*Crx) 5-325 Mg Tablet PO Q4H PRN Pain Rated 1-6 Bisacodyl 5 mg 03/07/25 14:15 Bisacodyl 5 Mg Tablet Ec PO DAILY PRN Constipation Calcium Carbonate 200 mg 03/07/25 14:15 Calcium Carbonate (Tums) 500 Mg (200 Mg Elemental) PO Q6H PRN Indigestion Docusate Sodium 100 mg 03/08/25 09:00 03/08/25 16:37 Docusate Sodium 100 Mg Capsule PO 100 mg BID ALBERTO Administration Heparin Sodium (Porcine) 5,000 units 03/07/25 21:00 03/08/25 21:56 Heparin Sodium 5,000 Units/Ml Vial SUB-Q 5,000 units Q12HR ALBERTO Administration Hydrocortisone Sodium Succinate 100 mg 03/08/25 08:39 03/09/25 05:00 Hydrocortisone Sodium Succinate 100 Mg/2 Ml Vial IV PUSH 100 mg Q8HR ALBERTO Administration Norepinephrine Bitartrate 8 mg in 250 mls @ 0 mls/hr 03/07/25 21:15 03/09/25 06:00 Levophed 8 Mg/D5w 250 Ml IV CONT 0 mcg/min .Q0M ALBERTO 0 mls/hr Protocol Titration 0 MCG/MIN Meropenem 1 gm/ Sodium 100 mls @ 200 mls/hr 03/08/25 17:00 03/09/25 05:30 Chloride IVPB Infused Q12H ALBERTO Infusion Vasopressin 100 units/ 100 mls @ 0 mls/hr 03/08/25 09:10 03/09/25 06:00 Dextrose IV CONT 0 units/min .Q0M ALBERTO 0 mls/hr Protocol Titration 0 UNITS/MIN Sodium Bicarbonate 150 meq/ 1,100 mls @ 125 mls/hr 03/08/25 09:30 03/09/25 05:01 Sterile Water IV CONT 125 mls/hr .Q8H48M ALBERTO Administration Melatonin 5 mg 03/08/25 23:19 03/08/25 23:26 Melatonin 5 Mg Tablet PO 5 mg HS PRN Administration sleep Morphine Sulfate 4 mg 03/07/25 14:15 Morphine Sulfate (*Crx) 4 Mg/Ml Inj IV PUSH Q4H PRN Pain Rated 7-10 Morphine Sulfate 2 mg 03/07/25 17:16 Morphine Sulfate (*Crx) 4 Mg/Ml Inj IV PUSH Q2H PRN Pain Rated 7-10 Naloxone HCl 0.1 mg 03/07/25 17:16 Naloxone Hcl 0.4 Mg/Ml Vial IV PUSH Q2M PRN Opiate Reversal Ondansetron HCl 4 mg 03/07/25 17:16 03/08/25 23:35 Ondansetron Inj 4 Mg/2 Ml Vial IV PUSH 4 mg Q12H PRN Administration Nausea And Vomiting Pantoprazole Sodium 40 mg 03/07/25 21:15 03/08/25 08:06 Pantoprazole Sodium Iv 40 Mg Vial IV PUSH 40 mg QAM ALBERTO Administration Perflutren Lipid Microsphere 0 ml 03/08/25 08:27 Perflutren Lipid Microspheres 1.5 Ml Vial Diluted To 10 Ml Total Volume IV PUSH 03/11/25 08:29 ONCE PRN adequate visualization Protocol Propafenone HCl 150 mg 03/08/25 09:15 03/08/25 21:58 Propafenone Hcl 150 Mg Tablet PO 150 mg Q12HR ALBERTO Administration Sodium Chloride 10 ml 03/08/25 06:00 03/09/25 05:00 Central Line Flush IV PUSH 10 ml Q8HR ALBERTO Administration Sodium Chloride 20 ml 03/07/25 22:41 Central Line Flush IV PUSH PRN PRN after blood draws Radiology Results: ITS Impressions Abdomen/Pelvis CT 03/07/25 13:16 IMPRESSION: 1. Hydronephrosis right kidney. Almost certainly due to 5 mm stone along right UVJ, although pelvis severely obscured from streak artifact. Ureter Stent X-Ray 03/07/25 17:26 IMPRESSION: 1. As mentioned above Labs Labs: Laboratory Results - last 24 hr 03/08/25 03/08/25 03/09/25 09:49 17:14 05:09 WBC 20.1 H RBC 3.25 L Hgb 10.1 L Hct 30.0 L MCV 92.3 MCH 31.1 MCHC 33.7 RDW 13.0 Plt Count 55 L MPV 9.8 % Immature Plt Fraction 4.1 Sodium 134 L 133 L Potassium 4.1 4.0 Chloride 103 98 Carbon Dioxide 22 30 Anion Gap 9 5 BUN 32 H 35 H Creatinine 1.11 H 1.13 H Estim Creat Clear Calc 48 47 Estimated GFR 50 L 49 L Glucose 141 H 104 Lactic Acid 2.1 H Calcium 8.1 L 8.0 L Phosphorus 2.7 3.1 Magnesium 2.0 2.0 Total Bilirubin 0.8 AST 107 H ALT 98 H Alkaline Phosphatase 50 Total Protein 5.3 L Albumin 3.3 L
[2025-03-09] MEDS: PROPAFENONE HCL 150 MG TABLET PO ×2 (08:42→21:12)
[2025-03-09] MEDS: PANTOPRAZOLE SODIUM IV 40 MG VIAL IV PUSH (08:42)
[2025-03-09] MEDS: DOCUSATE SODIUM 100 MG CAPSULE PO ×2 (08:42→16:59)
--- NOTE | 2025-03-09 14:23 | WPDINTPN2 ---
Assessment and Plan Assessment and Plan (1) MARCUS (acute kidney injury): Code(s): N17.9 - Acute kidney failure, unspecified Status: Acute (2) Sepsis: Qualifiers: Sepsis type: sepsis due to unspecified organism Sepsis acute organ dysfunction status: without acute organ dysfunction Qualified Code(s): A41.9 - Sepsis, unspecified organism Code(s): A41.9 - Sepsis, unspecified organism Status: Acute (3) Pyelonephritis: Code(s): N12 - Tubulo-interstitial nephritis, not specified as acute or chronic Status: Acute (4) Urinary tract infection: Qualifiers: Hematuria presence: without hematuria Urinary tract infection type: site unspecified Qualified Code(s): N39.0 - Urinary tract infection, site not specified Code(s): N39.0 - Urinary tract infection, site not specified Status: Acute (5) Ureterolithiasis: Code(s): N20.1 - Calculus of ureter Status: Acute Plan 1. Neurologically: The patient is awake and following commands. 2. Cardiovascular: History of cardiac dysrhythmias. Continue with propafenone. Currently in sinus rhythm. 3. Respiratory: Room air. No symptoms next 4. GI: Patient is constipated getting Colace 5. and renal: Status post stent placement. Urine output has been improving. Will change IV fluids to normal saline for another 12 hours at 75 mL an hour. Will recheck labs tomorrow. Her chemistry looks similar to last night but in general her MARCUS is getting better. 6. Endocrine: No history of diabetes or thyroid disease 7. DVT prophylaxis: Sequential compression devices only due to thrombocytopenia 8. Hematologically: Thrombocytopenia persist most likely due to sepsis 9. Id: Cultures are pending continue meropenem Subjective Date/time seen: 03/09/25 14:23 Interval history: Patient is feeling much better. She has been afebrile and her pressors were stopped more than 12 hours ago Exam Narrative: Patient is awake alert and following commands Const: General: comfortable HENMT: Face/Nose/Sinus: Normal nares present Mouth: Yes moist mucous membranes Eyes: General: appearance normal, both eyes and all related structures Neck: Neck: no JVD Resp: Effort & Inspection: normal respiratory effort Cardio: Rate: regular rate GI: GI Palp: Yes Soft to palpation Auscultation: normal bowel sounds Other: Minimal tenderness on the right lower quadrant. No rebound or guarding : General: Yes bladder normal to palpation Skin: General skin exam: normal color Neuro: Motor exam (neuro): 5/5 motor strength present throughout Extrem: General: normal to inspection Psych: Mental Status: mental status grossly normal Objective Data Vital Signs Vital Signs: Vital Signs - 24 hr 03/08/25 15:00 03/08/25 15:04 03/08/25 16:00 Temperature Pulse Rate 78 74 72 Respiratory Rate 17 Blood Pressure 121/55 L 121/55 L 118/49 L Pulse Oximetry 96 Oxygen Delivery 03/08/25 16:00 03/08/25 16:00 03/08/25 16:00 Temperature 98.3 F Pulse Rate 73 74 79 Respiratory Rate 18 Blood Pressure 118/49 L 118/49 L Pulse Oximetry 97 Oxygen Delivery 03/08/25 16:17 03/08/25 16:30 03/08/25 17:00 Temperature Pulse Rate 83 90 Respiratory Rate 20 Blood Pressure 99/60 L 118/65 97/44 L Pulse Oximetry 98 Oxygen Delivery 03/08/25 17:52 03/08/25 18:00 03/08/25 18:00 Temperature 98.1 F Pulse Rate 70 68 Respiratory Rate 18 Blood Pressure 127/63 Pulse Oximetry 97 Oxygen Delivery 03/08/25 18:00 03/08/25 18:00 03/08/25 19:00 Temperature Pulse Rate 72 72 72 Respiratory Rate 20 Blood Pressure 127/63 127/63 134/61 Pulse Oximetry 97 Oxygen Delivery 03/08/25 19:23 03/08/25 20:00 03/08/25 20:00 Temperature 97.9 F Pulse Rate 72 69 69 Respiratory Rate 18 Blood Pressure 134/61 122/60 122/60 Pulse Oximetry 96 Oxygen Delivery 03/08/25 20:00 03/08/25 20:00 03/08/25 21:00 Temperature Pulse Rate 71 69 70 Respiratory Rate 15 Blood Pressure 122/60 123/58 L Pulse Oximetry 97 Oxygen Delivery 03/08/25 21:54 03/08/25 21:58 03/08/25 22:00 Temperature Pulse Rate 70 72 94 Respiratory Rate 18 Blood Pressure 120/51 L 123/67 Pulse Oximetry 97 Oxygen Delivery 03/08/25 22:00 03/08/25 22:00 03/08/25 22:04 Temperature Pulse Rate 94 94 78 Respiratory Rate Blood Pressure 123/67 123/61 Pulse Oximetry Oxygen Delivery 03/08/25 23:00 03/08/25 23:10 03/08/25 23:27 Temperature Pulse Rate 80 75 83 Respiratory Rate 18 Blood Pressure 121/61 121/61 125/56 L Pulse Oximetry 94 Oxygen Delivery 03/09/25 00:00 03/09/25 00:00 03/09/25 00:00 Temperature 98.0 F Pulse Rate 75 75 75 Respiratory Rate 20 Blood Pressure 126/64 126/64 Pulse Oximetry 96 Oxygen Delivery 03/09/25 00:00 03/09/25 01:00 03/09/25 02:00 Temperature Pulse Rate 75 77 73 Respiratory Rate 17 Blood Pressure 126/64 94/47 L Pulse Oximetry 93 Oxygen Delivery 03/09/25 02:00 03/09/25 02:00 03/09/25 02:00 Temperature Pulse Rate 73 73 73 Respiratory Rate 18 Blood Pressure 112/61 112/61 112/61 Pulse Oximetry 94 Oxygen Delivery 03/09/25 03:00 03/09/25 04:00 03/09/25 04:00 Temperature Pulse Rate 69 65 65 Respiratory Rate 17 Blood Pressure 119/59 L 119/62 119/62 Pulse Oximetry 94 Oxygen Delivery 03/09/25 04:00 03/09/25 04:00 03/09/25 05:00 Temperature 97.7 F Pulse Rate 65 67 78 Respiratory Rate 16 16 Blood Pressure 119/62 133/71 Pulse Oximetry 94 96 Oxygen Delivery 03/09/25 06:00 03/09/25 06:00 03/09/25 06:00 Temperature Pulse Rate 80 80 80 Respiratory Rate 14 Blood Pressure 135/77 135/77 Pulse Oximetry 97 Oxygen Delivery 03/09/25 06:00 03/09/25 07:00 03/09/25 08:00 Temperature 97.7 F Pulse Rate 80 66 72 Respiratory Rate 24 H 23 H Blood Pressure 135/77 112/70 131/72 Pulse Oximetry 93 96 Oxygen Delivery 03/09/25 08:00 03/09/25 08:00 03/09/25 08:00 Temperature Pulse Rate 80 72 72 Respiratory Rate 19 Blood Pressure 131/72 Pulse Oximetry 97 Oxygen Delivery Room Air 03/09/25 08:00 03/09/25 08:31 03/09/25 08:42 Temperature Pulse Rate 72 76 70 Respiratory Rate 11 L Blood Pressure 131/72 Pulse Oximetry 95 Oxygen Delivery 03/09/25 08:45 03/09/25 09:00 03/09/25 10:00 Temperature Pulse Rate 80 76 71 Respiratory Rate 19 14 20 Blood Pressure 121/72 109/51 L Pulse Oximetry 97 96 93 Oxygen Delivery 03/09/25 10:00 03/09/25 10:00 03/09/25 10:00 Temperature Pulse Rate 73 71 71 Respiratory Rate Blood Pressure 109/51 L 109/51 L Pulse Oximetry Oxygen Delivery 03/09/25 10:30 03/09/25 10:31 03/09/25 11:54 Temperature Pulse Rate 75 75 78 Respiratory Rate 19 22 H 20 Blood Pressure 112/60 Pulse Oximetry 96 95 96 Oxygen Delivery Room Air 03/09/25 12:00 03/09/25 12:00 03/09/25 12:00 Temperature 98.0 F Pulse Rate 83 83 79 Respiratory Rate 14 14 Blood Pressure 124/62 Pulse Oximetry 96 96 Oxygen Delivery Room Air 03/09/25 13:00 Temperature 98.4 F Pulse Rate 82 Respiratory Rate 25 H Blood Pressure 122/73 Pulse Oximetry 96 Oxygen Delivery Intake/Output Intake/Output: Intake & Output 03/06/25 03/07/25 03/08/25 03/09/25 23:59 23:59 23:59 23:59 Intake Total 2640.4 2970.8 2992.9 Output Total 700 650 Balance 2640.4 2270.8 2342.9 Meds/Results Medications: Active Medications Generic Name Dose Route Start Last Admin Trade Name Palq PRN Reason Stop Dose Admin Acetaminophen 650 mg 03/07/25 14:15 03/09/25 11:21 Acetaminophen 325 Mg Tablet PO 650 mg Q4H PRN Administration Mild Pain (1-3) or Fever Hydrocodone Bitart/Acetaminophen 1 tab 03/07/25 14:15 Hydrocodone/Acetaminophen (*Crx) 5-325 Mg Tablet PO Q4H PRN Moderate Pain (4-6) Bisacodyl 5 mg 03/07/25 14:15 Bisacodyl 5 Mg Tablet Ec PO DAILY PRN Constipation Calcium Carbonate 200 mg 03/07/25 14:15 Calcium Carbonate (Tums) 500 Mg (200 Mg Elemental) PO Q6H PRN Indigestion Docusate Sodium 100 mg 03/08/25 09:00 03/09/25 08:42 Docusate Sodium 100 Mg Capsule PO 100 mg BID ALBERTO Administration Enoxaparin Sodium 40 mg 03/09/25 21:00 Enoxaparin 40 Mg/0.4 Ml Syringe SUB-Q DAILY ALBERTO Hydrocortisone Sodium Succinate 50 mg 03/09/25 22:00 Hydrocortisone Sodium Succinate 100 Mg/2 Ml Vial IV PUSH Q8HR ALBERTO Meropenem 1 gm/ Sodium 100 mls @ 200 mls/hr 03/08/25 17:00 03/09/25 05:30 Chloride IVPB Infused Q12H ALBERTO Infusion Sodium Bicarbonate 150 meq/ 1,100 mls @ 125 mls/hr 03/08/25 09:30 03/09/25 13:12 Sterile Water IV CONT 125 mls/hr .Q8H48M ALBERTO Administration Sodium Chloride 1,000 mls @ 75 mls/hr 03/09/25 14:17 Normal Saline Iv IV CONT 03/10/25 03:36 .[id number] ONE Melatonin 5 mg 03/08/25 23:19 03/08/25 23:26 Melatonin 5 Mg Tablet PO 5 mg HS PRN Administration sleep Morphine Sulfate 2 mg 03/07/25 17:16 Morphine Sulfate (*Crx) 4 Mg/Ml Inj IV PUSH Q2H PRN Pain Rated 7-10 Naloxone HCl 0.1 mg 03/07/25 17:16 Naloxone Hcl 0.4 Mg/Ml Vial IV PUSH Q2M PRN Opiate Reversal Ondansetron HCl 4 mg 03/07/25 17:16 03/08/25 23:35 Ondansetron Inj 4 Mg/2 Ml Vial IV PUSH 4 mg Q12H PRN Administration Nausea And Vomiting Propafenone HCl 150 mg 03/08/25 09:15 03/09/25 08:42 Propafenone Hcl 150 Mg Tablet PO 150 mg Q12HR ALBERTO Administration Sodium Chloride 10 ml 03/08/25 06:00 03/09/25 13:14 Central Line Flush IV PUSH 10 ml Q8HR ALBERTO Administration Sodium Chloride 20 ml 03/07/25 22:41 Central Line Flush IV PUSH PRN PRN after blood draws Radiology Results: ITS Impressions Abdomen/Pelvis CT 03/07/25 13:16 IMPRESSION: 1. Hydronephrosis right kidney. Almost certainly due to 5 mm stone along right UVJ, although pelvis severely obscured from streak artifact. Ureter Stent X-Ray 03/07/25 17:26 IMPRESSION: 1. As mentioned above Labs Labs: Laboratory Results - last 24 hr 03/08/25 03/09/25 17:14 05:09 WBC 20.1 H RBC 3.25 L Hgb 10.1 L Hct 30.0 L MCV 92.3 MCH 31.1 MCHC 33.7 RDW 13.0 Plt Count 55 L MPV 9.8 % Immature Plt Fraction 4.1 Sodium 134 L 133 L Potassium 4.1 4.0 Chloride 103 98 Carbon Dioxide 22 30 Anion Gap 9 5 BUN 32 H 35 H Creatinine 1.11 H 1.13 H Estim Creat Clear Calc 48 47 Estimated GFR 50 L 49 L Glucose 141 H 104 Calcium 8.1 L 8.0 L Phosphorus 2.7 3.1 Magnesium 2.0 2.0 Total Bilirubin 0.8 AST 107 H ALT 98 H Alkaline Phosphatase 50 Total Protein 5.3 L Albumin 3.3 L
[2025-03-09] MEDS: SODIUM CHLORIDE 0.9% IV 1,000 ML 75 ML IV CONT (14:36)
[2025-03-09] MEDS: BISACODYL 5 MG TABLET EC PO (16:59)
--- NOTE | 2025-03-09 18:35 | PC.NURSE ---
This patient, Daysi Block, was transferred to [[facility] ] on 03/09/25 at 1835. Personal belongings sent with patient. Report given to [DANIKA Malcolm @ [phone]]. Appropriate documentation sent with patient.
[2025-03-09] MEDS: HYDROCORTISONE SODIUM SUCCINATE 100 MG/2 ML VIAL 50 MG IV PUSH (21:13)
[2025-03-09] MEDS: MELATONIN 5 MG TABLET PO (21:13)
[2025-03-10] VITALS (12 sets, daily range): BP systolic 113–130; BP diastolic 51–54; PULSE 64–85; RESP 16–18; TEMP 36.4–37; O2SAT 95–97
[2025-03-10] MEDS: HYDROCORTISONE SODIUM SUCCINATE 100 MG/2 ML VIAL 50 MG IV PUSH ×3 (05:14→21:12)
[2025-03-10] MEDS: MEROPENEM 1 GM in SODIUM CHLORIDE 0.9% IV 100 ML 200 ML IVPB ×2 (05:16→16:45)
[2025-03-10 05:19] LABS: Hematocrit 30.6 % (37.0-47.0); Hemoglobin 10.4 g/dL (12.0-15.0); Immature Platelet Fraction Pct 5.1 % (0.9-11.2); Mean Corpuscular HGB Conc 34.0 g/dl (32-36); Mean Corpuscular Hemoglobin 30.7 pg (26-34); Mean Corpuscular Volume 90.3 fl (80-100); Platelet Count Result 69 k/mm3 (150-375); Red Blood Count 3.39 M/mm3 (4.2-5.4); White Blood Count 21.7 K/mm3 (4.5-10.0)
[2025-03-10 05:53] LABS: Alanine Aminotransferase 105 U/L (6-35); Albumin Level 3.2 g/dL (3.5-5.1); Alkaline Phosphatase 67 U/L (38-126); Anion Gap 3 mmol/L (4-12); Aspartate Amino Transferase 72 U/L (14-36); Bilirubin,Total 0.7 mg/dL (0.2-1.3); Blood Urea Nitrogen 27 mg/dL (7-17); Calcium 8.2 mg/dL (8.4-10.2); Carbon Dioxide 33 mmol/L (22-30); Chloride 102 mmol/L (98-107); Estimated CRCL calculation 59 ml/min; Estimated Glomerular Filt Rate > 60; Glucose 92 mg/dL (65-110); Magnesium 2.2 mg/dL (1.6-2.3); Potassium 2.9 mmol/L (3.4-5.0); Sodium 138 mmol/L (137-145); Total Protein 5.4 g/dL (6.3-8.2)
[2025-03-10] MEDS: PROPAFENONE HCL 150 MG TABLET PO ×2 (10:00→21:12)
[2025-03-10] MEDS: DOCUSATE SODIUM 100 MG CAPSULE PO ×2 (10:01→16:45)
--- NOTE | 2025-03-10 13:04 | P.PNIM_ITS ---
Assessment and Plan Assessment and Plan (1) Septic shock: Code(s): A41.9 - Sepsis, unspecified organism; R65.21 - Severe sepsis with septic shock Status: Acute Assessment and Plan: Severe septic shock secondary to pyelonephritis and UTI secondary to obstructing stone Patient status post a stent placement S/p Pressors and IVF Urine and blood culture sent and pending Continue empiric meropenem to cover for ESBL ECHO showed normal BiV function f/u urine culture (2) Urinary tract infection: Qualifiers: Hematuria presence: without hematuria Urinary tract infection type: site unspecified Qualified Code(s): N39.0 - Urinary tract infection, site not specified Code(s): N39.0 - Urinary tract infection, site not specified Status: Acute Assessment and Plan: See above (3) Pyelonephritis: Code(s): N12 - Tubulo-interstitial nephritis, not specified as acute or chronic Status: Acute Assessment and Plan: See above (4) Ureterolithiasis: Code(s): N20.1 - Calculus of ureter Status: Acute Assessment and Plan: See above (5) Hydronephrosis: Code(s): N13.30 - Unspecified hydronephrosis Status: Acute Assessment and Plan: See above (6) MARCUS (acute kidney injury): Code(s): N17.9 - Acute kidney failure, unspecified Status: Acute Assessment and Plan: Creatinine 1.38 likely secondary to combination of obstruction and shock Treatment of shock as above. Patient now has a stent as above resolved Cr 0.88 monitor (7) Abnormality of right ventricular outflow tract: Code(s): Q20.8 - Other congenital malformations of cardiac chambers and connections Status: Acute Assessment and Plan: ECHO 1. Complete two-dimensional, color flow and Doppler transthoracic echocardiogram is performed. 2. There is normal biventricular size and systolic function. 3. There are no significant valvular abnormalities. COntinue Propafenone Plan DVT prophylaxis -subcu heparin Code Status - Full Code Subjective Date/time seen: 03/10/25 13:04 Interval history: Patient comfortabel at bedside Awaiting uring culture for discharge Review of Systems Review of Systems: All systems reviewed & are unremarkable except as noted in HPI and below Exam Narrative: General: Pt is alert awake and in NAD Lungs/Chest: Trachea central Clear BS B/L, No crackles or wheezing. Cardiac: RRR. Normal S1 S2. No murmurs Circulation: Pedal pulses are intact and symmetrical. Abdomen: Normal bowel sounds.. Soft.. ND. Mild tenderness in right flank no guarding or rigidity Extremities: No clubbing, cyanosis or edema. Warm : Leach in place Neurologic: Follows commands. Moves all 4 extremities PERRL AO x3 Skin: No Rash Const: Other: , female, ill-appearing without toxic appearance. Modestly uncomfortable with no acute distress. HENMT: Face/Nose/Sinus: Normal nares present Mouth: Yes moist mucous membranes Eyes: General: appearance normal, both eyes and all related structures Sclera: sclerae normal Pupils: Equal, round and reactive pupils present EOM: EOMs intact bilaterally Resp: Effort & Inspection: normal respiratory effort Auscultation: clear to auscultation bilaterally Cardio: Rate: tachycardic Rhythm: regular rhythm Other: S1-S2 present without murmur, rub, ectopy GI: Other: Abdomen soft and nondistended. Significant tenderness in the right upper quadrant that wraps around to her right flank, +CVA tenderness that is right- sided. Normoactive bowel sounds in all quadrants. Skin: General skin exam: normal color and no rashes or lesions noted Wounds: no wounds Neuro: Cranial nerves: Yes Equal, round and reactive pupils present Speech: normal speech Motor exam (neuro): 5/5 motor strength present throughout Sensory Exam: normal sensation Other: A&O x4 Extrem: General: normal to inspection Psych: Mental Status: mental status grossly normal Affect: normal affect Other: Good insight and judgment, pleasant Objective Data Vital Signs Vital Signs: Vital Signs - 24 hr 03/09/25 14:00 03/09/25 14:00 03/09/25 14:00 Temperature Pulse Rate 83 75 72 Respiratory Rate 21 H Blood Pressure 123/73 123/73 123/73 Pulse Oximetry 95 Oxygen Delivery 03/09/25 16:00 03/09/25 16:00 03/09/25 19:50 Temperature 99.1 F 97.7 F Pulse Rate 72 74 65 Respiratory Rate 22 H 20 Blood Pressure 130/68 136/70 Pulse Oximetry 98 97 Oxygen Delivery 03/09/25 20:00 03/09/25 21:12 03/09/25 23:22 Temperature 97.3 F L Pulse Rate 69 66 Respiratory Rate Blood Pressure Pulse Oximetry Oxygen Delivery 03/10/25 00:00 03/10/25 04:00 03/10/25 04:11 Temperature 97.6 F Pulse Rate 69 71 75 Respiratory Rate 18 Blood Pressure 118/54 L Pulse Oximetry 97 Oxygen Delivery 03/10/25 08:00 03/10/25 10:00 03/10/25 11:39 Temperature Pulse Rate 81 75 Respiratory Rate Blood Pressure Pulse Oximetry 96 Oxygen Delivery Room Air Intake/Output Intake/Output: Intake & Output 03/07/25 03/08/25 03/09/25 03/10/25 23:59 23:59 23:59 23:59 Intake Total 2640.4 2970.8 3284.6 1020 Output Total 700 1200 Balance 2640.4 2270.8 2084.6 1020 Meds/Results Medications: Active Medications Generic Name Dose Route Start Last Admin Trade Name Freq PRN Reason Stop Dose Admin Acetaminophen 650 mg 03/07/25 14:15 03/09/25 11:21 Acetaminophen 325 Mg Tablet PO 650 mg Q4H PRN Administration Mild Pain (1-3) or Fever Hydrocodone Bitart/Acetaminophen 1 tab 03/07/25 14:15 Hydrocodone/Acetaminophen (*Crx) 5-325 Mg Tablet PO Q4H PRN Moderate Pain (4-6) Bisacodyl 5 mg 03/07/25 14:15 03/09/25 16:59 Bisacodyl 5 Mg Tablet Ec PO 5 mg DAILY PRN Administration Constipation Calcium Carbonate 200 mg 03/07/25 14:15 Calcium Carbonate (Tums) 500 Mg (200 Mg Elemental) PO Q6H PRN Indigestion Docusate Sodium 100 mg 03/08/25 09:00 03/10/25 10:01 Docusate Sodium 100 Mg Capsule PO 100 mg BID ALBERTO Administration Hydrocortisone Sodium Succinate 50 mg 03/09/25 22:00 03/10/25 05:14 Hydrocortisone Sodium Succinate 100 Mg/2 Ml Vial IV PUSH 50 mg Q8HR ALBERTO Administration Meropenem 1 gm/ Sodium 100 mls @ 200 mls/hr 03/08/25 17:00 03/10/25 05:16 Chloride IVPB 200 mls/hr Q12H ALBERTO Administration Melatonin 5 mg 03/08/25 23:19 03/09/25 21:13 Melatonin 5 Mg Tablet PO 5 mg HS PRN Administration sleep Naloxone HCl 0.1 mg 03/07/25 17:16 Naloxone Hcl 0.4 Mg/Ml Vial IV PUSH Q2M PRN Opiate Reversal Ondansetron HCl 4 mg 03/07/25 17:16 03/08/25 23:35 Ondansetron Inj 4 Mg/2 Ml Vial IV PUSH 4 mg Q12H PRN Administration Nausea And Vomiting Propafenone HCl 150 mg 03/08/25 09:15 03/10/25 10:00 Propafenone Hcl 150 Mg Tablet PO 150 mg Q12HR ALBERTO Administration Sodium Chloride 10 ml 03/08/25 06:00 03/10/25 09:59 Central Line Flush IV PUSH Not Given Q8HR ALBERTO Sodium Chloride 20 ml 03/07/25 22:41 Central Line Flush IV PUSH PRN PRN after blood draws Radiology Results: ITS Impressions Abdomen/Pelvis CT 03/07/25 13:16 IMPRESSION: 1. Hydronephrosis right kidney. Almost certainly due to 5 mm stone along right UVJ, although pelvis severely obscured from streak artifact. Ureter Stent X-Ray 03/07/25 17:26 IMPRESSION: 1. As mentioned above Labs Labs: Laboratory Results - last 24 hr 03/10/25 05:02 WBC 21.7 H RBC 3.39 L Hgb 10.4 L Hct 30.6 L MCV 90.3 MCH 30.7 MCHC 34.0 RDW 12.6 Plt Count 69 L MPV 10.6 H % Immature Plt Fraction 5.1 Sodium 138 Potassium 2.9 L Chloride 102 Carbon Dioxide 33 H Anion Gap 3 L BUN 27 H Creatinine 0.88 Estim Creat Clear Calc 59 Estimated GFR > 60 Glucose 92 Calcium 8.2 L Phosphorus 2.3 L Magnesium 2.2 Total Bilirubin 0.7 AST 72 H ALT 105 H Alkaline Phosphatase 67 Total Protein 5.4 L Albumin 3.2 L Quality VTE Prophylaxis VTE prophylaxis: pharmacologic ordered
[2025-03-10] MEDS: BISACODYL 5 MG TABLET EC PO (21:19)
[2025-03-10] MEDS: ACETAMINOPHEN 325 MG TABLET 650 MG PO (21:25)
[2025-03-10] MEDS: MELATONIN 5 MG TABLET PO (21:25)
[2025-03-11] VITALS: PULSE 74
[2025-03-11] MEDS: POTASSIUM CHLORIDE 20 MEQ ER TABLET 40 MEQ PO (01:27)
[2025-03-11] MEDS: MEROPENEM 1 GM in SODIUM CHLORIDE 0.9% IV 100 ML 200 ML IVPB (05:05)
[2025-03-11] MEDS: HYDROCORTISONE SODIUM SUCCINATE 100 MG/2 ML VIAL 50 MG IV PUSH (05:05)
[2025-03-11 05:21] VITALS: BP 142/65; PULSE 60; RESP 16; TEMP 36.4; O2SAT 95
[2025-03-11 05:43] LABS: Hematocrit 31.2 % (37.0-47.0); Hemoglobin 10.3 g/dL (12.0-15.0); Immature Granulocyte Percent A 0.7 % (0-0.5); Immature Platelet Fraction Pct 8.7 % (0.9-11.2); Lymphocytes Absolute Auto 0.99 K/mm3 (0.9-3.2); Mean Corpuscular HGB Conc 33.0 g/dl (32-36); Mean Corpuscular Hemoglobin 30.4 pg (26-34); Mean Corpuscular Volume 92.0 fl (80-100); Nucleated Red Blood Cells Absolute Auto 0.000 K/mm3 (0.0-0.012); Nucleated Red Blood Cells Perc 0.0 % (0.0-0.2); Platelet Count Result 67 k/mm3 (150-375); Red Blood Count 3.39 M/mm3 (4.2-5.4); White Blood Count 14.1 K/mm3 (4.5-10.0)
[2025-03-11 06:05] LABS: Alanine Aminotransferase 93 U/L (6-35); Albumin Level 3.1 g/dL (3.5-5.1); Alkaline Phosphatase 68 U/L (38-126); Anion Gap 3 mmol/L (4-12); Aspartate Amino Transferase 54 U/L (14-36); Bilirubin,Total 0.7 mg/dL (0.2-1.3); Blood Urea Nitrogen 22 mg/dL (7-17); Calcium 8.5 mg/dL (8.4-10.2); Carbon Dioxide 30 mmol/L (22-30); Chloride 106 mmol/L (98-107); Estimated CRCL calculation 81 ml/min; Estimated Glomerular Filt Rate > 60; Glucose 101 mg/dL (65-110); Magnesium 2.1 mg/dL (1.6-2.3); Potassium 3.4 mmol/L (3.4-5.0); Sodium 139 mmol/L (137-145); Total Protein 5.4 g/dL (6.3-8.2)
[2025-03-11 08:00] VITALS: PULSE 51
[2025-03-11] MEDS: PROPAFENONE HCL 150 MG TABLET PO (08:59)
[2025-03-11] MEDS: DOCUSATE SODIUM 100 MG CAPSULE PO (08:59)
--- NOTE | 2025-03-11 11:59 | P.DS_ITS ---
DS: Admitting Diagnosis Discharge Date 03/11/25 Admitting Diagnosis Flank pain DS: Discharge Diagnosis Discharge Diagnosis (1) Septic shock: Code(s): A41.9 - Sepsis, unspecified organism; R65.21 - Severe sepsis with septic shock Status: Acute (2) Pyelonephritis: Code(s): N12 - Tubulo-interstitial nephritis, not specified as acute or chronic Status: Acute DS: Summary Hospital Course Hospital Course: Hospital Course Daysi Block is a 59-year-old female with a history of paroxysmal ventricular tachycardia, abnormality of the right ventricular outflow tract, ob structive sleep apnea, and nephrolithiasis who presented on 03/07/2025 with acute right flank pain beginning at approximately 4:30 a.m., associated with nausea, vomiting, lightheadedness, and malaise. She denied dysuria, hematuria, or urinary frequency. On presentation, she developed fever to 103?F, tachycardia greater than 130 bpm, and tachypnea, meeting criteria for sepsis. Initial laboratory studies showed no leukocytosis and preserved renal function. Urinalysis was consistent with urinary tract infection, and CT abdomen/pelvis demonstrated right-sided hydronephrosis with perinephric stranding due to an obstructing 5 mm distal right ureterovesical junction stone. Despite aggressive fluid resuscitation exceeding 30 mL/kg, the patient became persistently hypotensive with elevated lactate, requiring central venous access and vasopressor support. Antibiotics were escalated from ceftriaxone to meropenem, and she was transferred to the ICU for management of?septic shock secondary to obstructive pyelonephritis. Urology was urgently consulted, and the patient underwent right ureteroscopy with stone extraction and right ureteral stent placement on 03/07/2025, achieving definitive source control. Postoperatively, she developed acute kidney injury with a peak creatinine of 1.38 mg/dL, attributed to septic shock and obstruction, which resolved with hemodynamic stabilization and relief of obstruction. Transthoracic echocardiogram demonstrated normal biventricular size and systolic function without significant valvular disease. Vasopressors were successfully weaned, renal function returned to baseline, and the patient remained afebrile and hemodynamically stable. She was transferred out of the ICU and completed her inpatient course on broad-spectrum antibiotics pending culture results. By discharge, she was clinically stable, tolerating diet, ambulating, and without recurrent fever or hypotension. Discharge Diagnoses * Septic shock secondary to obstructive pyelonephritis and urinary tract infection * Right distal ureterolithiasis with hydronephrosis, status post ureteroscopy, stone extraction, and ureteral stent placement * Acute kidney injury, resolved * Paroxysmal ventricular tachycardia * Abnormality of right ventricular outflow tract * Obstructive sleep apnea Discharge Medications * Propafenone 150 mg?PO every 12 hours * Ciprofloxacin 4 days * Calcium carbonate?vitamin D3 600 mg/200 IU?PO twice daily * Magnesium citrate 100 mg?PO every 12 hours * Vitamin B12 (mecobalamin) 1,000 mcg?PO daily * Multivitamin?PO daily * Frederic-3 fish oil 1,000 mg?PO every 12 hours * Semaglutide 1.25 mg?subcutaneous weekly Follow-Up * Urology:?Outpatient follow-up for ureteral stent removal approximately one week after discharge * Primary Care:?Routine post-hospital follow-up * Cardiology:?Continue established outpatient follow-up for paroxysmal ventricular tachycardia Discharge Condition Stable, afebrile, hemodynamically normal, renal function at baseline, and off vasopressors. Time Spent with Patient Time attestation: Total time spent providing and/or coordinating discharge services: DS: Data Data Completed and Pending Completed studies during hospitalization: Pending at discharge 03/07/25 16:59 Surgical [PTH] Routine Labs on day of discharge: Labs from last 24 hours 03/11/25 05:19 WBC 14.1 H RBC 3.39 L Hgb 10.3 L Hct 31.2 L MCV 92.0 MCH 30.4 MCHC 33.0 RDW 12.6 Plt Count 67 L MPV 11.3 H Immature Gran % (Auto) 0.7 H Neut % (Auto) 86.5 H Lymph % (Auto) 7.0 L [place] % (Auto) 5.6 Eos % (Auto) 0.0 Baso % (Auto) 0.2 Lymph # (Auto) 0.99 [place] # (Auto) 0.8 H Eos # (Auto) 0.0 Baso # (Auto) 0.0 Abs Immat Gran (auto) 0.10 H Absolute Neuts (auto) 12.2 H Absolute Nucleated RBC 0.000 Nucleated RBC % 0.0 % Immature Plt Fraction 8.7 Sodium 139 Potassium 3.4 Chloride 106 Carbon Dioxide 30 Anion Gap 3 L BUN 22 H Creatinine 0.63 L Estim Creat Clear Calc 81 Estimated GFR > 60 Glucose 101 Calcium 8.5 Phosphorus 2.4 L Magnesium 2.1 Total Bilirubin 0.7 AST 54 H ALT 93 H Alkaline Phosphatase 68 Total Protein 5.4 L Albumin 3.1 L Preliminary micro results at discharge 03/07/25 14:19 Blood Culture - Preliminary Blood 03/07/25 14:19 Blood Culture - Preliminary Blood Discharge Plan Discharge Attending physician on discharge: Radha Storm Consulting providers: Jl Galloway Onyema Discharging Clinician: Radha Storm Anticipated Discharge Date/Time: 03/11/25 11:27 Patient Disposition: Home Activity: as tolerated Diet: as tolerated and regular Patient Instructions: Antibiotic Form Patient Language: Kittitian Stand Alone Forms: General Discharge Information Follow-up/Referrals: Atif,ALEJANDRINA Freitas [Primary Care Provider, Unknown] Referral Note: F/u with PCP in 3-5 days Jl Galloway MD [Physician, Urology] Referral Note: F/u with Urology as instructed Discharge Medications: New ciprofloxacin HCl 500 mg tablet 500 mg PO Q12H 4 Days Qty: 8 0RF Continued propafenone 150 mg tablet 150 mg PO Q12H semaglutide (weight loss) 1.25 mg subcut WEEKLY Rx Instructions: calcium carbonate-vitamin D3 [Calcium 600 + D(3)] 600 mg-5 mcg (200 unit) tablet 1 tablet PO BID multivitamin [Daily Multi-Vitamin] Tablet 1 tablet PO DAILY magnesium citrate 100 mg capsule 100 mg PO Q12H omega [id number] oil [Fish Oil] 1,000 (120-180) mg capsule 1 cap PO Q12H mecobalamin (vitamin B12) [B12 Active] 1,000 mcg tablet,chewable 1,000 mcg PO DAILY Date of admission: 03/07/25 14:35 Primary Care Provider: Atif,Constance Schmidt Admitting Provider: Karolyn Vazquez Attending physician on admission: Karolyn Vazquez Condition: Stable
[2025-03-11 12:00] VITALS: PULSE 75
== END 2025-03-11 13:03 | disposition home or self-care (01) | DRG 853 ==
LOC: ANHED 13:56 → ANHICU 03-09 11:57 → ANH2MED 03-10 07:40 → ANH3MEDSUR 03-15 11:47 → ANHICU 03-15 11:47 → ANHIMU 03-15 11:47
PROVIDERS: Internal Medicine; Student in an Organized Health Care Education/Training Program; Urology; Admitting Provider Family Medicine; Emergency Provider Family Medicine; PCP Nurse Practitioner; Visit Provider Internal Medicine
PROC: 0T768DZ Dilation of Right Ureter with Intraluminal Device, Via Natural or Artificial Opening Endoscopic (ICD-10-PCS; CPT 52352; principal; 2025-03-07 16:30)
DX: A41.9 Sepsis, unspecified organism (principal); R65.21 Severe sepsis with septic shock; N13.6 Pyonephrosis; I47.20 Ventricular tachycardia, unspecified; N17.9 Acute kidney failure, unspecified; G47.33 Obstructive sleep apnea (adult) (pediatric); D69.59 Other secondary thrombocytopenia; Q20.8 Other congenital malformations of cardiac chambers and connections
CPT/HCPCS: 36415; 74177; 80048; 80053; 81001; 82365; 83605; 83735; 84100; 84145; 85025; 85027; 85055; 87040; 87086; 87186; 87641; 88300; 93005; 93306; 96361; 96365; 96375; 96376; 99285; A9270; C1751; C2617; J0613; J0696; J1171; J1644; J1720; J1885; J2003; J2185; J2250; J2270; J2371; J2405; J2470; J2704; J3010; J3475; J7030; J7040; J7120; J7121; P9045; P9047; Q9967